=== PATIENT | male | born 1950 | race Caucasian/White ===

== ENCOUNTER 2020-09-07 09:00 | Inpatient (IN) ==
[2020-09-07] MEDS ORDERED: GLUCAGON 1 MG VIAL IM PRN (09:04)
[2020-09-07] MEDS ORDERED: DEXTROSE 50% 25 GM/50 ML VIAL IV PRN (09:04)
[2020-09-07] MEDS ORDERED: CLORAZEPATE 3.75 MG TABLET PO PRN (09:14)
[2020-09-07] MEDS ORDERED: SODIUM CHLORIDE 0.9% 1,000 ML IV SCH (09:30)
[2020-09-07] MEDS: CHLORHEXIDINE 4% SOLN 118 ML BOTTLE TOP SCH ×3 (09:39→20:30)
[2020-09-07] MEDS: CHLORHEXIDINE 0.12% ORAL RINSE 60 ML BOTTLE SWISH/SPIT SCH ×2 (09:39→20:23)
[2020-09-07 10:01] LABS: Basophils # 0.1 10*3/uL (0.0-0.2); Basophils % 0.6 % (0.0-0.8); Eosinophils # 0.3 10*3/uL (0.0-0.87); Eosinophils % 3.7 % (0.00-10.9); Hemoglobin 13.3 GM/DL (14.0-18.0); Immature Granulocytes % 0.5 %; Immature Granulocytes Absolute 0.04 #; Lymphocytes # 0.8 10*3/uL (1.4-4.0); Lymphocytes % 10.1 % (21.2-54.2); Mean Corpuscular HGB Conc 34.1 GM/DL (32-36); Mean Corpuscular Volume 91.5 FL (87-102); Mean Platelet Volume 10.8 FL (9.6-12.0); Monocytes % 10.5 % (1.7-12.7); Neutrophils % 74.6 % (38.7-73.9); Platelet Count 187 T/CUMM (130-400); Red Blood Count 4.26 MC/CUMM (3.8-5.5); Red Cell Distribution Width 14.4 % (9.3-17.3); White Blood Count 8.2 T/CUMM (4-12)
[2020-09-07 10:29] LABS: Albumin 3.3 G/DL (3.4-5.0); Bilirubin,Total 0.6 MG/DL (0.2-1.0); Calcium 8.6 MG/DL (8.5-10.1); Osmolality,Calculated 278.5 MOS/KG (273-304); Potassium 3.8 MMOL/L (3.5-5.1)
[2020-09-07 14:09] LABS: ABG Base Excess 3.9 MMOL/L (-2.5-2.5); ABG HCO3 27.7 MMOL/L (20-26); ABG Oxygen Saturation 90.1 % (95-100); ABG PCO2 37.5 MM HG (35-48); ABG PH 7.473 (7.35-7.45); ABG TCO2 23.9 MMOL/L (23-27)
[2020-09-07] MEDS: ASCORBIC ACID 500 MG TABLET PO SCH ×2 (14:39→20:23)
[2020-09-07] MEDS ORDERED: CHLORHEXIDINE 4% SOLN 118 ML BOTTLE TOP SCH (15:00)
[2020-09-07] MEDS: carvediloL 3.125 MG TABLET PO SCH (16:38)
[2020-09-07] MEDS: BUDESONIDE 0.5 MG/2 ML NEB RESP TX SCH (19:35)
[2020-09-07] MEDS ORDERED: ESCITALOPRAM 10 MG TABLET PO SCH (21:00)
[2020-09-07] MEDS ORDERED: CHLORHEXIDINE 0.12% ORAL RINSE 60 ML BOTTLE SWISH/SPIT SCH (21:00)
[2020-09-07] MEDS ORDERED: ROSUVASTATIN 20 MG TABLET PO SCH (21:00)
[2020-09-07] MEDS ORDERED: ALFUZOSIN 10 MG TABLET PO SCH (21:00)
[2020-09-08] MEDS ORDERED: PAPAVERINE 60 MG/2 ML VIAL ONE (04:22)
[2020-09-08] MEDS ORDERED: VANCOMYCIN 1,000 MG VIAL ONE (04:22)
[2020-09-08] MEDS ORDERED: VANCOMYCIN 500 MG VIAL ONE (04:22)
[2020-09-08] MEDS ORDERED: CEFUROXIME INJ 1,500 MG in SYRINGE 1 EACH IV ONE (05:00)
[2020-09-08] MEDS ORDERED: VECURONIUM 10 MG VIAL IV ONE (05:32)
[2020-09-08] MEDS ORDERED: AMINOCAPROIC ACID 5,000 MG/20 ML VIAL ONE (05:32)
[2020-09-08] MEDS ORDERED: LIDOCAINE 2% 5 ML VIAL ONE ×2 (05:32→12:27)
[2020-09-08] MEDS ORDERED: CALCIUM CHLORIDE 1,000 MG/10 ML VIAL IV ONE ×2 (05:33→12:22)
[2020-09-08] MEDS ORDERED: ETOMIDATE 40 MG/20 ML VIAL IV ONE (05:33)
[2020-09-08] MEDS ORDERED: HEPARIN/NACL 0.9% 2 UNITS/ML 500 ML IV ONE (05:55)
[2020-09-08] MEDS ORDERED: PHENYLEPHRINE DRIP 20 MG/250 ML PREMIX IV ONE (05:55)
[2020-09-08] MEDS ORDERED: SODIUM CHLORIDE 0.9% 250 ML IV ONE (05:55)
[2020-09-08] MEDS ORDERED: LACTATED RINGERS 1,000 ML IV ONE (05:55)
[2020-09-08] MEDS ORDERED: SODIUM CHLORIDE 0.9% 100 ML IV ONE ×2 (05:55→13:04)
[2020-09-08] MEDS ORDERED: SODIUM CHLORIDE 0.9% 1,000 ML IV ONE (05:55)
[2020-09-08] MEDS ORDERED: DIAZEPAM 5 MG TABLET PO ONE (06:00)
[2020-09-08] MEDS ORDERED: FAMOTIDINE 20 MG TABLET PO ONE (06:00)
[2020-09-08] MEDS ORDERED: MIDAZOLAM 10 MG/2 ML VIAL ONE ×4 (06:05→06:06)
[2020-09-08] MEDS ORDERED: SUFentanil 250 MCG/5 ML AMP ONE ×2 (06:06→08:01)
[2020-09-08] MEDS ORDERED: SEVOFLURANE 1 UNIT/15 MINUTE INH ONE ×2 (07:21→12:43)
[2020-09-08 07:46] LABS: ABG Base Excess 1.4 MMOL/L (-2.5-2.5); ABG HCO3 25.7 MMOL/L (20-26); ABG PCO2 38.9 MM HG (35-48); ABG PH 7.428 (7.35-7.45); ABG TCO2 22.8 MMOL/L (23-27); Glucose Heart Surgery 104 MG/DL (74-106); Hematocrit Heart Surgery 36.1 PERCENT (42-52); Hemoglobin Heart Surgery 11.7 G/DL (14.0-18.0); Ionized Calcium Arterial 1.15 MMOL/L (1.21-1.46); PCO2 Patient Temp Arterial 38.9 MMHG; PH Patient Temp Arterial 7.428; Patient Temperature 37 CELCIUS; Potassium Heart/CVR 3.3 MMOL/L (3.5-5.1); Sodium Heart/CVR 140 MMOL/L (135-145)
[2020-09-08] MEDS: BUDESONIDE 0.5 MG/2 ML NEB RESP TX SCH (08:08)
[2020-09-08] MEDS: carvediloL 3.125 MG TABLET PO SCH (08:09)
[2020-09-08] MEDS: CHLORHEXIDINE 0.12% ORAL RINSE 60 ML BOTTLE SWISH/SPIT SCH (08:09)
[2020-09-08] MEDS: ASCORBIC ACID 500 MG TABLET PO SCH (08:11)
[2020-09-08] MEDS ORDERED: NITROPRUSSIDE 50 MG/2 ML VIAL ONE (08:16)
[2020-09-08] MEDS ORDERED: PHENYLEPHRINE DRIP 40 MG/250 ML PREMIX IV ONE (08:16)
[2020-09-08] MEDS ORDERED: POTASSIUM CHLORIDE RIDER 100 ML IV ONE ×2 (08:16→12:43)
[2020-09-08] MEDS ORDERED: SODIUM BICARBONATE 50 MEQ/50 ML VIAL IV ONE ×2 (08:16→12:29)
[2020-09-08] MEDS ORDERED: EPINEPHrine 1 MG/10 ML SYRINGE ONE (08:17)
[2020-09-08] MEDS ORDERED: CALCIUM CHLORIDE 1,000 MG/10 ML SYRINGE IV ONE (08:17)
[2020-09-08 08:54] LABS: Bilirubin,Urine Negative (Negative); Blood, Urine Negative (Negative); Glucose,Urine (UA) Negative (Negative); Ketones,Urine Negative (Negative); Mucus,Urine Occasional /LPF (Occasional); Nitrite,Urine Negative (Negative); Protein,Urine Negative; RBC,Urine 6 /HPF (0-4); Urine Appearance CLEAR (Clear); Urine Color Yellow (Yellow); Urine Specific Gravity 1.019 (1.001-1.035); Urine Urobilinogen < 2.0 EU/DL (0.2-1.0); WBC,Urine 15 /HPF (0-6)
[2020-09-08] MEDS ORDERED: amLODIPine 10 MG TABLET PO SCH (09:00)
[2020-09-08 09:28] LABS: Hematocrit Heart Surgery 28.7 PERCENT (42-52); Hemoglobin Heart Surgery 9.3 G/DL (14.0-18.0); PCO2 Patient Temp Venous 33.1 MM HG; PH Patient Temp Venous 7.503; PO2 Patient Temp Venous 32.6 MM HG; Potassium Heart/CVR 3.9 MMOL/L (3.5-5.1); VBG Base Excess 3.2 MEQ/L (0-4); VBG HCO3 26.9 MEQ/L (24-28); VBG Oxygen Saturation 77.5 %; VBG PCO2 38.3 MMHG (41-51); VBG PH 7.458; VBG PO2 40.3 MMHG (17-40); VBG Total CO2 24.9 MMOL/L
[2020-09-08 10:02] LABS: Hemoglobin Heart Surgery 8.7 G/DL (14.0-18.0); PCO2 Patient Temp Venous 36.1 MM HG; PH Patient Temp Venous 7.453; PO2 Patient Temp Venous 51.7 MM HG; Potassium Heart/CVR 3.4 MMOL/L (3.5-5.1); VBG Base Excess 1.7 MEQ/L (0-4); VBG HCO3 25.9 MEQ/L (24-28); VBG Oxygen Saturation 93.7 %; VBG PCO2 43.8 MMHG (41-51); VBG PH 7.395; VBG PO2 67.1 MMHG (17-40); VBG Total CO2 24.8 MMOL/L
[2020-09-08 10:28] LABS: Hematocrit Heart Surgery 27.6 PERCENT (42-52); Hemoglobin Heart Surgery 8.9 G/DL (14.0-18.0); PCO2 Patient Temp Venous 29.8 MM HG; PH Patient Temp Venous 7.514; PO2 Patient Temp Venous 35.4 MM HG; Potassium Heart/CVR 3.8 MMOL/L (3.5-5.1); VBG Base Excess 1.8 MEQ/L (0-4); VBG HCO3 25.9 MEQ/L (24-28); VBG Oxygen Saturation 90.4 %; VBG PCO2 41.8 MMHG (41-51); VBG PH 7.411; VBG PO2 56.8 MMHG (17-40); VBG Total CO2 24.5 MMOL/L
[2020-09-08 11:06] LABS: Hematocrit Heart Surgery 28.2 PERCENT (42-52); Hemoglobin Heart Surgery 9.1 G/DL (14.0-18.0); PCO2 Patient Temp Venous 29.6 MM HG; PH Patient Temp Venous 7.512; PO2 Patient Temp Venous 38.4 MM HG; Potassium Heart/CVR 3.6 MMOL/L (3.5-5.1); VBG Base Excess 1.5 MEQ/L (0-4); VBG HCO3 25.6 MEQ/L (24-28); VBG Oxygen Saturation 91.5 %; VBG PCO2 41.5 MMHG (41-51); VBG PH 7.409; VBG PO2 61.2 MMHG (17-40); VBG Total CO2 24.2 MMOL/L
[2020-09-08 11:22] LABS: Hematocrit Heart Surgery 27.3 PERCENT (42-52); Hemoglobin Heart Surgery 8.8 G/DL (14.0-18.0); PCO2 Patient Temp Venous 40.3 MM HG; PH Patient Temp Venous 7.416; PO2 Patient Temp Venous 62.8 MM HG; Potassium Heart/CVR 3.8 MMOL/L (3.5-5.1); VBG Base Excess 1.3 MEQ/L (0-4); VBG HCO3 25.5 MEQ/L (24-28); VBG Oxygen Saturation 93.1 %; VBG PCO2 40.3 MMHG (41-51); VBG PH 7.416; VBG PO2 62.8 MMHG (17-40); VBG Total CO2 23.9 MMOL/L
[2020-09-08] MEDS ORDERED: diphenhydrAMINE 50 MG/1 ML VIAL ONE (11:41)
[2020-09-08] MEDS ORDERED: FAMOTIDINE 20 MG/2 ML VIAL IV ONE (11:42)
[2020-09-08 11:52] LABS: Hemoglobin Heart Surgery 8.7 G/DL (14.0-18.0); PCO2 Patient Temp Venous 35.3 MM HG; PH Patient Temp Venous 7.455; PO2 Patient Temp Venous 37.9 MM HG; Potassium Heart/CVR 4.2 MMOL/L (3.5-5.1); VBG Base Excess 1.2 MEQ/L (0-4); VBG HCO3 25.2 MEQ/L (24-28); VBG Oxygen Saturation 79.8 %; VBG PCO2 38.9 MMHG (41-51); VBG PH 7.426; VBG PO2 43.6 MMHG (17-40); VBG Total CO2 23.7 MMOL/L
[2020-09-08] MEDS ORDERED: ALBUMIN 5% 12.5 GM/250 ML VIAL IV ONE ×2 (12:05)
[2020-09-08] MEDS ORDERED: ALBUMIN 25% 25 GM/100 ML VIAL IV ONE (12:27)
[2020-09-08] MEDS ORDERED: MAGNESIUM SULFATE 5 GM/10 ML VIAL IV ONE (12:27)
[2020-09-08] MEDS ORDERED: PROTAMINE SULFATE 250 MG/25 ML VIAL IV ONE (12:28)
[2020-09-08] MEDS ORDERED: DEXTROSE 5% KCL 20 MEQ 40 MEQ/2,000 ML BAG IV ONE (12:28)
[2020-09-08] MEDS ORDERED: HEPARIN 10,000 UNIT/10 ML VIAL ONE (12:28)
[2020-09-08] MEDS ORDERED: methylPREDNISolone SOD SUC 1,000 MG/8 ML VIAL ONE (12:28)
[2020-09-08] MEDS ORDERED: MANNITOL 100 GM/500 ML BAG IV ONE (12:28)
[2020-09-08] MEDS ORDERED: FUROSEMIDE 20 MG/2 ML VIAL ONE (12:29)
[2020-09-08] MEDS ORDERED: PROTAMINE SULFATE 50 MG/5 ML VIAL IV ONE ×2 (12:29→14:15)
[2020-09-08] MEDS ORDERED: POTASSIUM CHLORIDE 20 MEQ/10 ML VIAL ONE (12:29)
[2020-09-08 12:37] LABS: ABG Base Excess -0.7 MMOL/L (-2.5-2.5); ABG HCO3 23.8 MMOL/L (20-26); ABG Oxygen Saturation 98.9 % (95-100); ABG PCO2 38.2 MM HG (35-48); ABG PH 7.412 (7.35-7.45); Glucose Heart Surgery 232 MG/DL (74-106); Hemoglobin Heart Surgery 8.5 G/DL (14.0-18.0); Ionized Calcium Arterial 1.13 MMOL/L (1.21-1.46); PCO2 Patient Temp Arterial 38.2 MMHG; PH Patient Temp Arterial 7.412; Patient Temperature 37 CELCIUS; Potassium Heart/CVR 3.1 MMOL/L (3.5-5.1); Sodium Heart/CVR 130 MMOL/L (135-145)
[2020-09-08] MEDS ORDERED: THROMBIN TOPICAL (RECOMBINANT) 5,000 UNIT VIAL TOP ONE (12:38)
[2020-09-08] MEDS ORDERED: POTASSIUM CHLORIDE RIDER 10 MEQ in PREMIX 1 EACH IV PRN (13:38)
[2020-09-08] MEDS ORDERED: LACTATED RINGERS 250 ML IV PRN (13:38)
[2020-09-08] MEDS ORDERED: MAGNESIUM SULF RIDER 4 GM in PREMIX 1 EACH IV PRN (13:38)
[2020-09-08] MEDS ORDERED: PHENYLEPHRINE DRIP 40 MG/250 ML PREMIX IV PRN (13:38)
[2020-09-08] MEDS ORDERED: MORPHINE 4 MG/1 ML VIAL IV PRN (13:38)
[2020-09-08] MEDS ORDERED: CHLORHEXIDINE 4% SOLN 118 ML BOTTLE TOP PRN (13:38)
[2020-09-08] MEDS ORDERED: DEXTROSE 50% 25 GM/50 ML VIAL IV PRN ×2 (13:38)
[2020-09-08] MEDS ORDERED: MIDAZOLAM 2 MG/2 ML VIAL IV PRN (13:38)
[2020-09-08] MEDS ORDERED: MIDAZOLAM 10 MG/2 ML VIAL IV PRN (13:38)
[2020-09-08] MEDS ORDERED: INSULIN REGULAR DRIP 100 ML IV SCH (13:38)
[2020-09-08] MEDS ORDERED: CALCIUM CHLORIDE 1,000 MG/10 ML SYRINGE IV PRN (13:38)
[2020-09-08] MEDS ORDERED: ACETAMINOPHEN 650 MG SUPP RECTAL PRN (13:38)
[2020-09-08] MEDS ORDERED: ONDANSETRON 4 MG/2 ML VIAL IV PRN (13:38)
[2020-09-08] MEDS ORDERED: MORPHINE 10 MG/1 ML VIAL IV PRN (13:38)
[2020-09-08] MEDS ORDERED: INSULIN REGULAR 100 UNIT/ML IV PRN (13:38)
[2020-09-08] MEDS ORDERED: VECURONIUM 10 MG VIAL IV PRN ×2 (13:38)
[2020-09-08] MEDS ORDERED: MAGNESIUM SULF RIDER 2 GM in PREMIX 1 EACH IV PRN (13:38)
[2020-09-08] MEDS ORDERED: NITROPRUSSIDE 100 MG in DEXTROSE 5% 250 ML IV PRN (13:38)
[2020-09-08] MEDS ORDERED: INSULIN REGULAR 100 UNIT/ML IV ONE (13:38)
[2020-09-08] MEDS ORDERED: SODIUM CHLORIDE 0.45% 1,000 ML IV SCH ×2 (13:38)
[2020-09-08] MEDS: POTASSIUM CHLORIDE RIDER 20 MEQ in PREMIX 1 EACH IV PRN ×4 (13:55→17:40)
[2020-09-08 14:15] LABS: ABG Base Excess -0.7 MMOL/L (-2.5-2.5); ABG HCO3 23.9 MMOL/L (20-26); ABG Oxygen Saturation 99.6 % (95-100); ABG PCO2 44.6 MM HG (35-48); ABG PH 7.354 (7.35-7.45); ABG TCO2 23.3 MMOL/L (23-27); Glucose Heart Surgery 188 MG/DL (74-106); Hematocrit Heart Surgery 24.8 PERCENT (42-52)
[2020-09-08 14:20] LABS: Basophils % 0.2 % (0.0-0.8); Eosinophils # 0.1 10*3/uL (0.0-0.87); Eosinophils % 0.6 % (0.00-10.9); Hematocrit 22.8 VOL% (42.0-52.0); Hemoglobin 7.7 GM/DL (14.0-18.0); Lymphocytes # 0.4 10*3/uL (1.4-4.0); Lymphocytes % 4.3 % (21.2-54.2); Mean Corpuscular HGB Conc 33.8 GM/DL (32-36); Mean Corpuscular Volume 93.1 FL (87-102); Monocytes % 7.6 % (1.7-12.7); Neutrophils % 86.3 % (38.7-73.9); Platelet Count 185 T/CUMM (130-400); Red Blood Count 2.45 MC/CUMM (3.8-5.5); Red Cell Distribution Width 14.2 % (9.3-17.3); White Blood Count 10.2 T/CUMM (4-12)
[2020-09-08 14:32] LABS: CKMB % 13.9 %
[2020-09-08 14:34] LABS: Troponin I 17.8 NG/ML (0.00-0.045)
[2020-09-08 14:36] LABS: INR 1.2; PT Patient Result 12.6 SECS (9.8-11.9); Partial Thromboplastin Time 28.8 SECS (23.9-33.8)
[2020-09-08 14:39] LABS: Albumin 2.6 G/DL (3.4-5.0); Calcium 8.7 MG/DL (8.5-10.1); Osmolality,Calculated 283.4 MOS/KG (273-304); Total Protein 4.9 G/DL (6.4-8.2)
[2020-09-08] MEDS: ALBUMIN 5% 12.5 GM in PREMIX 1 EACH IV PRN ×2 (14:52→16:58)
[2020-09-08 15:08] LABS: Band Neutrophils 2 % (0-10); Lymphocytes 4 % (20-55); Segmented Neutrophils 93 % (50-85); Total Cells Counted 100
[2020-09-08 15:09] LABS: Hypochromasia 2+; Macrocytosis Slight; Platelet Estimate Normal
[2020-09-08 15:37] LABS: ABG Base Excess -1.7 MMOL/L (-2.5-2.5); ABG Oxygen Saturation 99.5 % (95-100); ABG PCO2 45.3 MM HG (35-48); ABG PH 7.337 (7.35-7.45); ABG TCO2 22.1 MMOL/L (23-27); Glucose Heart Surgery 173 MG/DL (74-106); Hematocrit Heart Surgery 32.3 PERCENT (42-52); Hemoglobin Heart Surgery 10.4 G/DL (14.0-18.0); Potassium Heart/CVR 4.1 MMOL/L (3.5-5.1)
[2020-09-08 17:01] LABS: ABG HCO3 23.6 MMOL/L (20-26); ABG PCO2 45.6 MM HG (35-48); ABG PH 7.345 (7.35-7.45); ABG TCO2 22.8 MMOL/L (23-27); Glucose Heart Surgery 139 MG/DL (74-106); Potassium Heart/CVR 3.3 MMOL/L (3.5-5.1)
[2020-09-08 17:49] LABS: ABG Base Excess -0.4 MMOL/L (-2.5-2.5); ABG HCO3 24.1 MMOL/L (20-26); ABG Oxygen Saturation 99.1 % (95-100); ABG PCO2 45.1 MM HG (35-48); ABG PH 7.357 (7.35-7.45); ABG TCO2 23.2 MMOL/L (23-27); Glucose Heart Surgery 119 MG/DL (74-106); Hematocrit Heart Surgery 30.1 PERCENT (42-52); Hemoglobin Heart Surgery 9.7 G/DL (14.0-18.0); Potassium Heart/CVR 4.1 MMOL/L (3.5-5.1)
[2020-09-08] MEDS: KETOROLAC 30 MG/1 ML VIAL IV SCH (19:27)
[2020-09-08 20:24] LABS: ABG Base Excess -1.9 MMOL/L (-2.5-2.5); ABG HCO3 22.9 MMOL/L (20-26); ABG Oxygen Saturation 98.9 % (95-100); ABG PCO2 47.6 MM HG (35-48); ABG TCO2 22.4 MMOL/L (23-27); Glucose Heart Surgery 118 MG/DL (74-106); Hematocrit Heart Surgery 32.3 PERCENT (42-52); Hemoglobin Heart Surgery 10.5 G/DL (14.0-18.0); Potassium Heart/CVR 3.9 MMOL/L (3.5-5.1)
[2020-09-08] MEDS: CEFUROXIME INJ 1,500 MG in SYRINGE 1 EACH IV SCH (20:40)
[2020-09-08 20:47] LABS: CKMB % 11.9 %
[2020-09-08 20:50] LABS: Troponin I 14.6 NG/ML (0.00-0.045)
[2020-09-08] MEDS ORDERED: CHLORHEXIDINE 0.12% ORAL RINSE 60 ML BOTTLE SWISH/SPIT SCH (21:00)
[2020-09-08 21:44] LABS: ABG Base Excess -1.4 MMOL/L (-2.5-2.5); ABG HCO3 23.2 MMOL/L (20-26); ABG Oxygen Saturation 98.2 % (95-100); ABG PCO2 44.7 MM HG (35-48); ABG PH 7.345 (7.35-7.45); ABG TCO2 22.3 MMOL/L (23-27); Glucose Heart Surgery 155 MG/DL (74-106); Hematocrit Heart Surgery 31.2 PERCENT (42-52); Hemoglobin Heart Surgery 10.1 G/DL (14.0-18.0)
[2020-09-08 23:00] LABS: ABG Base Excess -1.2 MMOL/L (-2.5-2.5); ABG HCO3 23.5 MMOL/L (20-26); ABG Oxygen Saturation 98.7 % (95-100); ABG PCO2 42.6 MM HG (35-48); ABG PH 7.363 (7.35-7.45); ABG TCO2 22.1 MMOL/L (23-27); Glucose Heart Surgery 156 MG/DL (74-106); Hematocrit Heart Surgery 30.8 PERCENT (42-52); Hemoglobin Heart Surgery 9.9 G/DL (14.0-18.0)
[2020-09-09] MEDS ORDERED: FUROSEMIDE 40 MG/4 ML VIAL IV ONE (00:08)
[2020-09-09] MEDS: KETOROLAC 30 MG/1 ML VIAL IV SCH ×4 (00:22→21:02)
[2020-09-09 00:26] LABS: ABG Base Excess -1.6 MMOL/L (-2.5-2.5); ABG HCO3 23.1 MMOL/L (20-26); ABG PCO2 39.9 MM HG (35-48); ABG PH 7.377 (7.35-7.45); ABG PO2 96.1 MM HG (80-95); ABG TCO2 20.8 MMOL/L (23-27); Glucose Heart Surgery 153 MG/DL (74-106); Hematocrit Heart Surgery 37.4 PERCENT (42-52); Hemoglobin Heart Surgery 12.2 G/DL (14.0-18.0); Potassium Heart/CVR 3.9 MMOL/L (3.5-5.1)
[2020-09-09 04:29] LABS: Basophils % 0.1 % (0.0-0.8); Hematocrit 28.9 VOL% (42.0-52.0); Immature Granulocytes % 0.5 %; Immature Granulocytes Absolute 0.05 #; Lymphocytes # 0.4 10*3/uL (1.4-4.0); Lymphocytes % 4.4 % (21.2-54.2); Mean Corpuscular HGB Conc 34.6 GM/DL (32-36); Mean Corpuscular Volume 89.8 FL (87-102); Mean Platelet Volume 10.8 FL (9.6-12.0); Monocytes % 6.4 % (1.7-12.7); Neutrophils % 88.6 % (38.7-73.9); Platelet Count 158 T/CUMM (130-400); Red Blood Count 3.22 MC/CUMM (3.8-5.5); Red Cell Distribution Width 14.6 % (9.3-17.3); White Blood Count 10.1 T/CUMM (4-12)
[2020-09-09 04:31] LABS: ABG Base Excess -0.2 MMOL/L (-2.5-2.5); ABG HCO3 24.2 MMOL/L (20-26); ABG Oxygen Saturation 97.4 % (95-100); ABG PCO2 37.7 MM HG (35-48); ABG PH 7.414 (7.35-7.45); ABG PO2 86.1 MM HG (80-95); ABG TCO2 21.8 MMOL/L (23-27); Glucose Heart Surgery 102 MG/DL (74-106); Hematocrit Heart Surgery 32.3 PERCENT (42-52); Hemoglobin Heart Surgery 10.5 G/DL (14.0-18.0); Potassium Heart/CVR 3.5 MMOL/L (3.5-5.1)
[2020-09-09] MEDS: POTASSIUM CHLORIDE RIDER 20 MEQ in PREMIX 1 EACH IV PRN (04:36)
[2020-09-09 04:51] LABS: CKMB % 12.1 %
[2020-09-09 05:06] LABS: Albumin 3.3 G/DL (3.4-5.0); Bilirubin,Direct 0.26 MG/DL (0.0-0.20); Bilirubin,Total 0.9 MG/DL (0.2-1.0); Calcium 8.5 MG/DL (8.5-10.1); Osmolality,Calculated 284.3 MOS/KG (273-304); Potassium 3.5 MMOL/L (3.5-5.1); Total Protein 5.7 G/DL (6.4-8.2)
[2020-09-09 05:09] LABS: Band Neutrophils 2 % (0-10); Lymphocytes 6 % (20-55); Segmented Neutrophils 90 % (50-85); Total Cells Counted 100
[2020-09-09 05:10] LABS: Hypochromasia 1+; Microcytosis 1+; Platelet Estimate Adequate
[2020-09-09] MEDS ORDERED: ZALEPLON 5 MG CAPSULE PO PRN (08:45)
[2020-09-09] MEDS ORDERED: ONDANSETRON 4 MG/2 ML VIAL IV PRN (08:45)
[2020-09-09] MEDS ORDERED: MAGNESIUM SULF RIDER 2 GM in PREMIX 1 EACH IV PRN (08:45)
[2020-09-09] MEDS ORDERED: MAGNESIUM HYDROXIDE SUSP 30 ML UDCUP PO PRN (08:45)
[2020-09-09] MEDS ORDERED: ALUMINUM/MAGNES/SIMETH MAX STR 30 ML UDCUP PO PRN (08:45)
[2020-09-09] MEDS ORDERED: MAGNESIUM SULF RIDER 4 GM in PREMIX 1 EACH IV PRN (08:45)
[2020-09-09] MEDS ORDERED: oxyCODONE/ACETAMINOPHEN 5-325 MG TABLET PO PRN (08:45)
[2020-09-09] MEDS ORDERED: DEXTROSE 50% 25 GM/50 ML VIAL IV PRN (08:45)
[2020-09-09] MEDS ORDERED: GLUCAGON 1 MG VIAL IM PRN (08:45)
[2020-09-09] MEDS ORDERED: ACETAMINOPHEN 325 MG TABLET PO PRN (08:45)
[2020-09-09] MEDS: ASPIRIN EC 81 MG TABLET PO SCH (08:51)
[2020-09-09] MEDS: CEFUROXIME INJ 1,500 MG in SYRINGE 1 EACH IV SCH ×2 (08:52→20:57)
[2020-09-09] MEDS: DOCUSATE SODIUM 100 MG CAPSULE PO SCH (09:58)
[2020-09-09] MEDS: FERROUS SULFATE 325 MG TABLET PO SCH (09:58)
[2020-09-09] MEDS: SODIUM CHLOR 0.45% KCL 20 MEQ 20 MEQ/1,000 ML BAG IV SCH (09:58)
[2020-09-09] MEDS: PANTOPRAZOLE 40 MG TABLET PO SCH (09:58)
[2020-09-09] MEDS: CHLORHEXIDINE 0.12% ORAL RINSE 60 ML BOTTLE SWISH/SPIT SCH ×2 (09:59→21:01)
[2020-09-09 14:34] LABS: CKMB % 7.6 %
[2020-09-09 14:43] LABS: Troponin I 6.82 NG/ML (0.00-0.045)
[2020-09-09] MEDS: WARFARIN 5 MG TABLET PO SCH (17:30)
[2020-09-09] MEDS: BUDESONIDE 0.5 MG/2 ML NEB RESP TX SCH (19:18)
[2020-09-09] MEDS: ROSUVASTATIN 20 MG TABLET PO SCH (21:00)
[2020-09-09] MEDS: ESCITALOPRAM 10 MG TABLET PO SCH (21:00)
[2020-09-09] MEDS: ALFUZOSIN 10 MG TABLET PO SCH (21:01)
[2020-09-10] MEDS: KETOROLAC 30 MG/1 ML VIAL IV SCH ×4 (00:57→20:30)
[2020-09-10 05:09] LABS: Basophils % 0.1 % (0.0-0.8); Hematocrit 27.5 VOL% (42.0-52.0); Hemoglobin 9.1 GM/DL (14.0-18.0); Immature Granulocytes % 0.7 %; Immature Granulocytes Absolute 0.08 #; Lymphocytes # 0.5 10*3/uL (1.4-4.0); Lymphocytes % 4.4 % (21.2-54.2); Mean Corpuscular HGB Conc 33.1 GM/DL (32-36); Mean Corpuscular Volume 92.6 FL (87-102); Mean Platelet Volume 12.1 FL (9.6-12.0); Monocytes % 9.1 % (1.7-12.7); Neutrophils % 85.7 % (38.7-73.9); Platelet Count 138 T/CUMM (130-400); Red Blood Count 2.97 MC/CUMM (3.8-5.5); Red Cell Distribution Width 15.1 % (9.3-17.3); White Blood Count 11.8 T/CUMM (4-12)
[2020-09-10 05:21] LABS: INR 1.1; PT Patient Result 11.9 SECS (9.8-11.9)
[2020-09-10 05:26] LABS: Calcium 8.5 MG/DL (8.5-10.1); Potassium 4.2 MMOL/L (3.5-5.1)
[2020-09-10 05:32] LABS: Albumin 3.1 G/DL (3.4-5.0); Bilirubin,Direct 0.16 MG/DL (0.0-0.20); Bilirubin,Indirect 0.5 MG/DL (0.0-1.0); Bilirubin,Total 0.7 MG/DL (0.2-1.0); CKMB % 4.6 %; Calcium 8.5 MG/DL (8.5-10.1); Osmolality,Calculated 284.7 MOS/KG (273-304); Potassium 4.3 MMOL/L (3.5-5.1); Total Protein 6.1 G/DL (6.4-8.2)
[2020-09-10 05:34] LABS: Troponin I 3.71 NG/ML (0.00-0.045)
[2020-09-10] MEDS ORDERED: FUROSEMIDE 40 MG/4 ML VIAL IV ONE (06:00)
[2020-09-10 06:48] LABS: Atypical Lymphocytes Few; Lymphocytes 11 % (20-55); Platelet Estimate Decreased; Segmented Neutrophils 89 % (50-85); Total Cells Counted 100
[2020-09-10] MEDS: BUDESONIDE 0.5 MG/2 ML NEB RESP TX SCH ×2 (07:10→19:10)
[2020-09-10] MEDS ORDERED: AMIODARONE INJ 150 MG in DEXTROSE 5% 100 ML IV ONE (07:59)
[2020-09-10] MEDS ORDERED: AMIODARONE INJ 450 MG in DEXTROSE 5% 241 ML IV SCH (08:00)
[2020-09-10] MEDS: PANTOPRAZOLE 40 MG TABLET PO SCH (08:51)
[2020-09-10] MEDS: DOCUSATE SODIUM 100 MG CAPSULE PO SCH (08:51)
[2020-09-10] MEDS: FERROUS SULFATE 325 MG TABLET PO SCH (08:51)
[2020-09-10] MEDS: ASPIRIN EC 81 MG TABLET PO SCH (08:51)
[2020-09-10] MEDS: CHLORHEXIDINE 0.12% ORAL RINSE 60 ML BOTTLE SWISH/SPIT SCH ×2 (08:56→20:29)
[2020-09-10] MEDS: SODIUM CHLOR 0.45% KCL 20 MEQ 20 MEQ/1,000 ML BAG IV SCH (10:06)
[2020-09-10] MEDS: AMIODARONE INJ 450 MG in DEXTROSE 5% 241 ML IV SCH ×2 (15:29→18:35)
[2020-09-10] MEDS: CLORAZEPATE 3.75 MG TABLET PO PRN (16:26)
[2020-09-10] MEDS: WARFARIN 5 MG TABLET PO SCH (17:43)
[2020-09-10] MEDS: ESCITALOPRAM 10 MG TABLET PO SCH (20:30)
[2020-09-10] MEDS: ROSUVASTATIN 20 MG TABLET PO SCH (20:30)
[2020-09-10] MEDS: ALFUZOSIN 10 MG TABLET PO SCH (20:30)
[2020-09-11] MEDS: KETOROLAC 30 MG/1 ML VIAL IV SCH ×4 (01:13→18:11)
[2020-09-11 05:40] LABS: Basophils % 0.1 % (0.0-0.8); Eosinophils % 0.3 % (0.00-10.9); Hematocrit 27.7 VOL% (42.0-52.0); Hemoglobin 8.9 GM/DL (14.0-18.0); Immature Granulocytes % 1.1 %; Immature Granulocytes Absolute 0.12 #; Lymphocytes # 0.6 10*3/uL (1.4-4.0); Lymphocytes % 5.5 % (21.2-54.2); Mean Corpuscular HGB Conc 32.1 GM/DL (32-36); Mean Corpuscular Volume 95.8 FL (87-102); Mean Platelet Volume 12.3 FL (9.6-12.0); Monocytes % 9.6 % (1.7-12.7); Neutrophils % 83.4 % (38.7-73.9); Platelet Count 141 T/CUMM (130-400); Red Blood Count 2.89 MC/CUMM (3.8-5.5); Red Cell Distribution Width 14.8 % (9.3-17.3); White Blood Count 10.8 T/CUMM (4-12)
[2020-09-11 05:49] LABS: INR 1.2
[2020-09-11 06:16] LABS: Calcium 8.4 MG/DL (8.5-10.1); Potassium 3.9 MMOL/L (3.5-5.1)
[2020-09-11] MEDS: AMIODARONE INJ 450 MG in DEXTROSE 5% 241 ML IV SCH ×2 (06:20→09:50)
[2020-09-11 06:21] LABS: Albumin 2.9 G/DL (3.4-5.0); Bilirubin,Direct 0.18 MG/DL (0.0-0.20); Bilirubin,Indirect 0.7 MG/DL (0.0-1.0); Bilirubin,Total 0.9 MG/DL (0.2-1.0); CKMB % 2.7 %; Calcium 8.1 MG/DL (8.5-10.1); Osmolality,Calculated 283.7 MOS/KG (273-304); Potassium 3.9 MMOL/L (3.5-5.1); Total Protein 5.9 G/DL (6.4-8.2)
[2020-09-11 06:26] LABS: Troponin I 1.9 NG/ML (0.00-0.045)
[2020-09-11] MEDS: BUDESONIDE 0.5 MG/2 ML NEB RESP TX SCH ×2 (07:10→19:04)
[2020-09-11] MEDS ORDERED: POLYETHYLENE GLYCOL POWDER 17 GM PACK PO ONE (08:16)
[2020-09-11] MEDS: PANTOPRAZOLE 40 MG TABLET PO SCH (08:54)
[2020-09-11] MEDS: CHLORHEXIDINE 0.12% ORAL RINSE 60 ML BOTTLE SWISH/SPIT SCH ×2 (08:54→21:51)
[2020-09-11] MEDS: DOCUSATE SODIUM 100 MG CAPSULE PO SCH (08:55)
[2020-09-11] MEDS: ASPIRIN EC 81 MG TABLET PO SCH (08:55)
[2020-09-11] MEDS: FERROUS SULFATE 325 MG TABLET PO SCH (08:55)
[2020-09-11] MEDS: AMIODARONE 200 MG TABLET PO SCH ×2 (09:49→21:51)
[2020-09-11] MEDS ORDERED: LACTULOSE 20 GM/30 ML UDCUP PO PRN (10:04)
[2020-09-11] MEDS: POTASSIUM CHLORIDE 20 MEQ TABLET PO PRN ×2 (14:49→18:11)
[2020-09-11] MEDS: WARFARIN 5 MG TABLET PO SCH (18:11)
[2020-09-11] MEDS ORDERED: AMIODARONE 150 MG/3 ML VIAL INTRAOSS ONE (19:44)
[2020-09-11] MEDS ORDERED: AMIODARONE INJ 100 MG in DEXTROSE 5% 100 ML IV ONE (20:04)
[2020-09-11] MEDS: ESCITALOPRAM 10 MG TABLET PO SCH (21:51)
[2020-09-11] MEDS: ALFUZOSIN 10 MG TABLET PO SCH (21:51)
[2020-09-11] MEDS: ROSUVASTATIN 20 MG TABLET PO SCH (21:51)
[2020-09-12] MEDS: KETOROLAC 30 MG/1 ML VIAL IV SCH ×4 (03:13→20:35)
[2020-09-12] MEDS: CLORAZEPATE 3.75 MG TABLET PO PRN (03:13)
[2020-09-12 06:03] LABS: Basophils % 0.1 % (0.0-0.8); Eosinophils # 0.4 10*3/uL (0.0-0.87); Eosinophils % 3.8 % (0.00-10.9); Hemoglobin 9.2 GM/DL (14.0-18.0); Immature Granulocytes % 0.5 %; Immature Granulocytes Absolute 0.05 #; Lymphocytes # 0.7 10*3/uL (1.4-4.0); Lymphocytes % 7.8 % (21.2-54.2); Mean Corpuscular HGB Conc 31.7 GM/DL (32-36); Mean Corpuscular Volume 97.3 FL (87-102); Mean Platelet Volume 12.7 FL (9.6-12.0); Monocytes % 9.4 % (1.7-12.7); Neutrophils % 78.4 % (38.7-73.9); Platelet Count 157 T/CUMM (130-400); Red Blood Count 2.98 MC/CUMM (3.8-5.5); Red Cell Distribution Width 14.6 % (9.3-17.3); White Blood Count 9.4 T/CUMM (4-12)
[2020-09-12 06:06] LABS: INR 1.3; PT Patient Result 13.5 SECS (9.8-11.9)
[2020-09-12 06:15] LABS: Calcium 8.2 MG/DL (8.5-10.1); Osmolality,Calculated 283.7 MOS/KG (273-304); Potassium 4.4 MMOL/L (3.5-5.1)
[2020-09-12] MEDS: BUDESONIDE 0.5 MG/2 ML NEB RESP TX SCH ×2 (07:14→19:21)
[2020-09-12] MEDS: ENOXAPARIN 60 MG/0.6 ML SYRINGE SUBCUT SCH (07:17)
[2020-09-12] MEDS: POLYETHYLENE GLYCOL POWDER 17 GM PACK PO SCH (09:13)
[2020-09-12] MEDS: CHLORHEXIDINE 0.12% ORAL RINSE 60 ML BOTTLE SWISH/SPIT SCH ×2 (09:14→20:40)
[2020-09-12] MEDS: FERROUS SULFATE 325 MG TABLET PO SCH (09:16)
[2020-09-12] MEDS: AMIODARONE 200 MG TABLET PO SCH ×2 (09:16→20:35)
[2020-09-12] MEDS: ASPIRIN EC 81 MG TABLET PO SCH (09:16)
[2020-09-12] MEDS: DOCUSATE SODIUM 100 MG CAPSULE PO SCH (09:16)
[2020-09-12] MEDS: PANTOPRAZOLE 40 MG TABLET PO SCH (09:17)
[2020-09-12] MEDS: METOPROLOL SUCCINATE XL 25 MG TABLET PO SCH (13:35)
[2020-09-12] MEDS: WARFARIN 5 MG TABLET PO SCH (17:27)
[2020-09-12] MEDS: ALBUTEROL/IPRATROPIUM 3 ML NEB RESP TX SCH (19:21)
[2020-09-12] MEDS: ESCITALOPRAM 10 MG TABLET PO SCH (20:35)
[2020-09-12] MEDS: ROSUVASTATIN 20 MG TABLET PO SCH (20:35)
[2020-09-12] MEDS: ALFUZOSIN 10 MG TABLET PO SCH (20:35)
[2020-09-13] MEDS: ALBUTEROL/IPRATROPIUM 3 ML NEB RESP TX SCH ×5 (00:38→18:49)
[2020-09-13] MEDS: KETOROLAC 30 MG/1 ML VIAL IV SCH ×3 (00:39→12:32)
[2020-09-13 05:46] LABS: Basophils % 0.1 % (0.0-0.8); Eosinophils # 0.5 10*3/uL (0.0-0.87); Eosinophils % 6.3 % (0.00-10.9); Hematocrit 26.9 VOL% (42.0-52.0); Hemoglobin 8.6 GM/DL (14.0-18.0); Immature Granulocytes Absolute 0.08 #; Lymphocytes # 0.8 10*3/uL (1.4-4.0); Lymphocytes % 9.2 % (21.2-54.2); Mean Corpuscular Volume 95.7 FL (87-102); Mean Platelet Volume 12.1 FL (9.6-12.0); Monocytes % 10.1 % (1.7-12.7); Neutrophils % 73.3 % (38.7-73.9); Platelet Count 176 T/CUMM (130-400); Red Blood Count 2.81 MC/CUMM (3.8-5.5); Red Cell Distribution Width 14.4 % (9.3-17.3); White Blood Count 8.2 T/CUMM (4-12)
[2020-09-13] MEDS: ENOXAPARIN 60 MG/0.6 ML SYRINGE SUBCUT SCH (05:49)
[2020-09-13 06:01] LABS: INR 1.8; PT Patient Result 19.2 SECS (9.8-11.9)
[2020-09-13 06:19] LABS: Alanine Aminotransferase 23 U/L (16-61); Albumin 2.8 G/DL (3.4-5.0); Alkaline Phosphatase 55 U/L (45-117); Aspartate Amino Transferase 10 U/L (0-37); Bilirubin,Indirect 0.6 MG/DL (0.0-1.0); Blood Urea Nitrogen 30 MG/DL (7-18); Calcium 8.3 MG/DL (8.5-10.1); Carbon Dioxide 29 MMOL/L (21-32); Estimated Glom Filtration Rate 102 ML/MIN; Glucose 95 MG/DL (74-106); Osmolality,Calculated 278.8 MOS/KG (273-304); Potassium 4.6 MMOL/L (3.5-5.1); Sodium 137 MMOL/L (136-145); Total Protein 5.6 G/DL (6.4-8.2)
[2020-09-13] MEDS: BUDESONIDE 0.5 MG/2 ML NEB RESP TX SCH ×2 (07:20→18:49)
[2020-09-13] MEDS ORDERED: FUROSEMIDE 40 MG/4 ML VIAL IV ONE ×2 (08:07→15:00)
[2020-09-13] MEDS: FERROUS SULFATE 325 MG TABLET PO SCH (08:53)
[2020-09-13] MEDS: PANTOPRAZOLE 40 MG TABLET PO SCH (08:53)
[2020-09-13] MEDS: DOCUSATE SODIUM 100 MG CAPSULE PO SCH (08:53)
[2020-09-13] MEDS: AMIODARONE 200 MG TABLET PO SCH ×2 (08:53→20:47)
[2020-09-13] MEDS: ASPIRIN EC 81 MG TABLET PO SCH (08:53)
[2020-09-13] MEDS: METOPROLOL SUCCINATE XL 25 MG TABLET PO SCH (08:53)
[2020-09-13] MEDS: CHLORHEXIDINE 0.12% ORAL RINSE 60 ML BOTTLE SWISH/SPIT SCH ×2 (08:54→20:48)
[2020-09-13] MEDS: POLYETHYLENE GLYCOL POWDER 17 GM PACK PO SCH (09:12)
[2020-09-13] MEDS: WARFARIN 5 MG TABLET PO SCH (18:20)
[2020-09-13] MEDS: ROSUVASTATIN 20 MG TABLET PO SCH (20:47)
[2020-09-13] MEDS: ESCITALOPRAM 10 MG TABLET PO SCH (20:48)
[2020-09-13] MEDS: ALFUZOSIN 10 MG TABLET PO SCH (20:48)
[2020-09-14] MEDS: ALBUTEROL/IPRATROPIUM 3 ML NEB RESP TX SCH ×4 (01:27→19:20)
[2020-09-14 05:44] LABS: Basophils % 0.1 % (0.0-0.8); Eosinophils # 0.6 10*3/uL (0.0-0.87); Eosinophils % 6.3 % (0.00-10.9); Hematocrit 28.2 VOL% (42.0-52.0); Hemoglobin 9.1 GM/DL (14.0-18.0); Immature Granulocytes % 0.8 %; Immature Granulocytes Absolute 0.07 #; Lymphocytes % 11.2 % (21.2-54.2); Mean Corpuscular HGB Conc 32.3 GM/DL (32-36); Mean Corpuscular Volume 96.2 FL (87-102); Mean Platelet Volume 11.6 FL (9.6-12.0); Monocytes % 10.6 % (1.7-12.7); Platelet Count 208 T/CUMM (130-400); Red Blood Count 2.93 MC/CUMM (3.8-5.5); Red Cell Distribution Width 14.4 % (9.3-17.3)
[2020-09-14 05:49] LABS: INR 2.3; PT Patient Result 23.3 SECS (9.8-11.9)
[2020-09-14] MEDS: ENOXAPARIN 60 MG/0.6 ML SYRINGE SUBCUT SCH (06:00)
[2020-09-14 06:08] LABS: Alanine Aminotransferase 24 U/L (16-61); Albumin 2.7 G/DL (3.4-5.0); Alkaline Phosphatase 60 U/L (45-117); Aspartate Amino Transferase 15 U/L (0-37); Blood Urea Nitrogen 25 MG/DL (7-18); Calcium 8.3 MG/DL (8.5-10.1); Carbon Dioxide 30 MMOL/L (21-32); Estimated Glom Filtration Rate 102 ML/MIN; Glucose 96 MG/DL (74-106); Osmolality,Calculated 276.8 MOS/KG (273-304); Potassium 3.7 MMOL/L (3.5-5.1); Sodium 137 MMOL/L (136-145); Total Protein 5.6 G/DL (6.4-8.2)
[2020-09-14 06:09] LABS: Troponin I 0.684 NG/ML (0.00-0.045)
[2020-09-14] MEDS: CHLORHEXIDINE 0.12% ORAL RINSE 60 ML BOTTLE SWISH/SPIT SCH ×2 (08:25→21:55)
[2020-09-14] MEDS: ASPIRIN EC 81 MG TABLET PO SCH (08:25)
[2020-09-14] MEDS: AMIODARONE 200 MG TABLET PO SCH ×2 (08:26→21:03)
[2020-09-14] MEDS: FERROUS SULFATE 325 MG TABLET PO SCH (08:26)
[2020-09-14] MEDS: DOCUSATE SODIUM 100 MG CAPSULE PO SCH (08:26)
[2020-09-14] MEDS: PANTOPRAZOLE 40 MG TABLET PO SCH (08:26)
[2020-09-14] MEDS: METOPROLOL SUCCINATE XL 25 MG TABLET PO SCH (08:26)
[2020-09-14] MEDS: POLYETHYLENE GLYCOL POWDER 17 GM PACK PO SCH (08:29)
[2020-09-14] MEDS ORDERED: SODIUM CHLORIDE 0.9% 1,000 ML IV PRN (12:10)
[2020-09-14] MEDS: BUDESONIDE 0.5 MG/2 ML NEB RESP TX SCH ×2 (14:10→19:20)
[2020-09-14] MEDS: WARFARIN 2.5 MG TABLET PO SCH (18:05)
[2020-09-14] MEDS: ESCITALOPRAM 10 MG TABLET PO SCH (21:03)
[2020-09-14] MEDS: ROSUVASTATIN 20 MG TABLET PO SCH (21:03)
[2020-09-14] MEDS: ALFUZOSIN 10 MG TABLET PO SCH (21:03)
[2020-09-15] MEDS: ALBUTEROL/IPRATROPIUM 3 ML NEB RESP TX SCH ×4 (01:06→19:12)
[2020-09-15 04:32] LABS: Basophils % 0.2 % (0.0-0.8); Eosinophils # 0.6 10*3/uL (0.0-0.87); Eosinophils % 5.3 % (0.00-10.9); Hematocrit 31.8 VOL% (42.0-52.0); Hemoglobin 10.5 GM/DL (14.0-18.0); Immature Granulocytes % 1.5 %; Immature Granulocytes Absolute 0.16 #; Lymphocytes # 0.9 10*3/uL (1.4-4.0); Lymphocytes % 8.8 % (21.2-54.2); Mean Corpuscular Volume 91.4 FL (87-102); Mean Platelet Volume 11.5 FL (9.6-12.0); Monocytes % 8.8 % (1.7-12.7); NRBC # 0.02 10*3/uL; Neutrophils % 75.4 % (38.7-73.9); Platelet Count 220 T/CUMM (130-400); Red Blood Count 3.48 MC/CUMM (3.8-5.5); Red Cell Distribution Width 15.6 % (9.3-17.3); White Blood Count 10.6 T/CUMM (4-12)
[2020-09-15 04:47] LABS: Calcium 7.8 MG/DL (8.5-10.1); INR 2.6; Osmolality,Calculated 275.8 MOS/KG (273-304); Potassium 3.3 MMOL/L (3.5-5.1)
[2020-09-15 04:50] LABS: PT Patient Result 26.1 SECS (9.8-11.9)
[2020-09-15] MEDS: BUDESONIDE 0.5 MG/2 ML NEB RESP TX SCH ×2 (07:25→19:12)
[2020-09-15] MEDS ORDERED: POTASSIUM CHLORIDE 20 MEQ TABLET PO ONE (08:31)
[2020-09-15] MEDS: FERROUS SULFATE 325 MG TABLET PO SCH (09:42)
[2020-09-15] MEDS: POLYETHYLENE GLYCOL POWDER 17 GM PACK PO SCH (09:42)
[2020-09-15] MEDS: DOCUSATE SODIUM 100 MG CAPSULE PO SCH (09:43)
[2020-09-15] MEDS: PANTOPRAZOLE 40 MG TABLET PO SCH (09:43)
[2020-09-15] MEDS: METOPROLOL SUCCINATE XL 25 MG TABLET PO SCH (09:43)
[2020-09-15] MEDS: ASPIRIN EC 81 MG TABLET PO SCH (09:43)
[2020-09-15] MEDS: AMIODARONE 200 MG TABLET PO SCH ×2 (09:43→21:10)
[2020-09-15] MEDS: CHLORHEXIDINE 0.12% ORAL RINSE 60 ML BOTTLE SWISH/SPIT SCH ×2 (09:46→21:10)
[2020-09-15] MEDS: WARFARIN 2.5 MG TABLET PO SCH (17:37)
[2020-09-15] MEDS: ALFUZOSIN 10 MG TABLET PO SCH (21:10)
[2020-09-15] MEDS: ROSUVASTATIN 20 MG TABLET PO SCH (21:10)
[2020-09-15] MEDS: ESCITALOPRAM 10 MG TABLET PO SCH (21:10)
[2020-09-16 05:17] LABS: Basophils % 0.2 % (0.0-0.8); Eosinophils # 0.5 10*3/uL (0.0-0.87); Eosinophils % 3.6 % (0.00-10.9); Hematocrit 33.6 VOL% (42.0-52.0); Hemoglobin 11.1 GM/DL (14.0-18.0); Immature Granulocytes % 1.6 %; Immature Granulocytes Absolute 0.21 #; Lymphocytes # 0.8 10*3/uL (1.4-4.0); Lymphocytes % 6.3 % (21.2-54.2); Mean Corpuscular Volume 92.1 FL (87-102); Mean Platelet Volume 11.2 FL (9.6-12.0); Monocytes % 9.6 % (1.7-12.7); Neutrophils % 78.7 % (38.7-73.9); Platelet Count 251 T/CUMM (130-400); Red Blood Count 3.65 MC/CUMM (3.8-5.5); White Blood Count 12.9 T/CUMM (4-12)
[2020-09-16 05:33] LABS: INR 2.3; PT Patient Result 24.1 SECS (9.8-11.9)
[2020-09-16 05:37] LABS: Calcium 8.2 MG/DL (8.5-10.1); Potassium 3.9 MMOL/L (3.5-5.1)
[2020-09-16] MEDS: ALBUTEROL/IPRATROPIUM 3 ML NEB RESP TX SCH ×4 (07:40→18:51)
[2020-09-16] MEDS: BUDESONIDE 0.5 MG/2 ML NEB RESP TX SCH ×2 (07:40→18:51)
[2020-09-16] MEDS: POLYETHYLENE GLYCOL POWDER 17 GM PACK PO SCH (09:43)
[2020-09-16] MEDS: DOCUSATE SODIUM 100 MG CAPSULE PO SCH (09:44)
[2020-09-16] MEDS: AMIODARONE 200 MG TABLET PO SCH ×2 (09:44→21:32)
[2020-09-16] MEDS: PANTOPRAZOLE 40 MG TABLET PO SCH (09:45)
[2020-09-16] MEDS: METOPROLOL SUCCINATE XL 25 MG TABLET PO SCH (09:45)
[2020-09-16] MEDS: CHLORHEXIDINE 0.12% ORAL RINSE 60 ML BOTTLE SWISH/SPIT SCH ×2 (09:46→21:32)
[2020-09-16] MEDS: ASPIRIN EC 81 MG TABLET PO SCH (09:47)
[2020-09-16] MEDS ORDERED: LACTULOSE 20 GM/30 ML UDCUP PO ONE (10:00)
[2020-09-16] MEDS: FERROUS SULFATE 325 MG TABLET PO SCH (11:54)
[2020-09-16] MEDS: WARFARIN 2.5 MG TABLET PO SCH (17:51)
[2020-09-16] MEDS: ALFUZOSIN 10 MG TABLET PO SCH (21:32)
[2020-09-16] MEDS: ESCITALOPRAM 10 MG TABLET PO SCH (21:32)
[2020-09-16] MEDS: ROSUVASTATIN 20 MG TABLET PO SCH (21:32)
[2020-09-17] MEDS: ALBUTEROL/IPRATROPIUM 3 ML NEB RESP TX SCH ×4 (00:51→18:30)
[2020-09-17 06:30] LABS: Basophils % 0.2 % (0.0-0.8); Eosinophils # 0.5 10*3/uL (0.0-0.87); Eosinophils % 4.2 % (0.00-10.9); Hematocrit 34.4 VOL% (42.0-52.0); Hemoglobin 11.1 GM/DL (14.0-18.0); Immature Granulocytes % 1.8 %; Immature Granulocytes Absolute 0.21 #; Lymphocytes # 1.1 10*3/uL (1.4-4.0); Lymphocytes % 9.2 % (21.2-54.2); Mean Corpuscular HGB Conc 32.3 GM/DL (32-36); Mean Corpuscular Volume 93.7 FL (87-102); Mean Platelet Volume 10.5 FL (9.6-12.0); Monocytes % 11.7 % (1.7-12.7); Neutrophils % 72.9 % (38.7-73.9); Platelet Count 263 T/CUMM (130-400); Red Blood Count 3.67 MC/CUMM (3.8-5.5); Red Cell Distribution Width 14.9 % (9.3-17.3); White Blood Count 11.7 T/CUMM (4-12)
[2020-09-17 06:43] LABS: Calcium 7.7 MG/DL (8.5-10.1); Osmolality,Calculated 276.7 MOS/KG (273-304); Potassium 3.6 MMOL/L (3.5-5.1)
[2020-09-17 07:03] LABS: INR 2.9
[2020-09-17] MEDS: BUDESONIDE 0.5 MG/2 ML NEB RESP TX SCH ×2 (07:22→18:30)
[2020-09-17] MEDS: DOCUSATE SODIUM 100 MG CAPSULE PO SCH (09:57)
[2020-09-17] MEDS: METOPROLOL SUCCINATE XL 25 MG TABLET PO SCH (09:57)
[2020-09-17] MEDS: PANTOPRAZOLE 40 MG TABLET PO SCH (09:58)
[2020-09-17] MEDS: ASPIRIN EC 81 MG TABLET PO SCH (09:58)
[2020-09-17] MEDS: AMIODARONE 200 MG TABLET PO SCH ×2 (09:59→21:16)
[2020-09-17] MEDS: CHLORHEXIDINE 0.12% ORAL RINSE 60 ML BOTTLE SWISH/SPIT SCH ×2 (10:03→21:16)
[2020-09-17] MEDS: POLYETHYLENE GLYCOL POWDER 17 GM PACK PO SCH (10:03)
[2020-09-17] MEDS: WARFARIN 2.5 MG TABLET PO SCH (17:49)
[2020-09-17] MEDS: ROSUVASTATIN 20 MG TABLET PO SCH (21:16)
[2020-09-17] MEDS: ALFUZOSIN 10 MG TABLET PO SCH (21:16)
[2020-09-17] MEDS: ESCITALOPRAM 10 MG TABLET PO SCH (21:16)
[2020-09-17] MEDS ORDERED: ALBUTEROL/IPRATROPIUM 3 ML NEB RESP TX PRN (22:08)
[2020-09-17] MEDS: CLORAZEPATE 3.75 MG TABLET PO PRN (22:31)
[2020-09-18] MEDS: ALBUTEROL/IPRATROPIUM 3 ML NEB RESP TX SCH ×4 (05:50→19:45)
[2020-09-18 07:12] LABS: Basophils % 0.1 % (0.0-0.8); Eosinophils # 0.4 10*3/uL (0.0-0.87); Eosinophils % 3.5 % (0.00-10.9); Hematocrit 31.5 VOL% (42.0-52.0); Hemoglobin 10.1 GM/DL (14.0-18.0); Immature Granulocytes % 2.2 %; Immature Granulocytes Absolute 0.23 #; Lymphocytes % 9.7 % (21.2-54.2); Mean Corpuscular HGB Conc 32.1 GM/DL (32-36); Mean Corpuscular Volume 93.2 FL (87-102); Mean Platelet Volume 10.6 FL (9.6-12.0); Monocytes % 9.2 % (1.7-12.7); Neutrophils % 75.3 % (38.7-73.9); Platelet Count 241 T/CUMM (130-400); Red Blood Count 3.38 MC/CUMM (3.8-5.5); Red Cell Distribution Width 14.7 % (9.3-17.3); White Blood Count 10.3 T/CUMM (4-12)
[2020-09-18] MEDS: BUDESONIDE 0.5 MG/2 ML NEB RESP TX SCH ×2 (07:17→19:45)
[2020-09-18 07:23] LABS: INR 2.8; PT Patient Result 28.4 SECS (9.8-11.9)
[2020-09-18 07:28] LABS: Calcium 7.8 MG/DL (8.5-10.1); Osmolality,Calculated 275.8 MOS/KG (273-304); Potassium 3.7 MMOL/L (3.5-5.1)
[2020-09-18] MEDS: METOPROLOL SUCCINATE XL 25 MG TABLET PO SCH (08:59)
[2020-09-18] MEDS: DOCUSATE SODIUM 100 MG CAPSULE PO SCH (08:59)
[2020-09-18] MEDS: PANTOPRAZOLE 40 MG TABLET PO SCH (08:59)
[2020-09-18] MEDS: AMIODARONE 200 MG TABLET PO SCH (08:59)
[2020-09-18] MEDS: POLYETHYLENE GLYCOL POWDER 17 GM PACK PO SCH (08:59)
[2020-09-18] MEDS: ASPIRIN EC 81 MG TABLET PO SCH (08:59)
[2020-09-18] MEDS: POTASSIUM CHLORIDE 20 MEQ TABLET PO PRN ×2 (09:00→13:31)
[2020-09-18] MEDS: CHLORHEXIDINE 0.12% ORAL RINSE 60 ML BOTTLE SWISH/SPIT SCH ×2 (09:04→20:28)
[2020-09-18 10:52] LABS: ABG Base Excess 5.2 MMOL/L (-2.5-2.5); ABG HCO3 29.5 MMOL/L (20-26); ABG Oxygen Saturation 97.6 % (95-100); ABG PCO2 42.2 MM HG (35-48); ABG PH 7.462 (7.35-7.45); ABG PO2 101.2 MM HG (80-95); ABG TCO2 30.8 MMOL/L (23-27); Allen Test Positive
[2020-09-18] MEDS ORDERED: WARFARIN 2 MG TABLET PO ONE (18:00)
[2020-09-18] MEDS: ESCITALOPRAM 10 MG TABLET PO SCH (20:28)
[2020-09-18] MEDS: ROSUVASTATIN 20 MG TABLET PO SCH (20:28)
[2020-09-18] MEDS: ALFUZOSIN 10 MG TABLET PO SCH (20:28)
[2020-09-19] MEDS: ALBUTEROL/IPRATROPIUM 3 ML NEB RESP TX SCH ×4 (00:24→19:40)
[2020-09-19 07:18] LABS: Basophils % 0.4 % (0.0-0.8); Eosinophils # 0.4 10*3/uL (0.0-0.87); Eosinophils % 3.5 % (0.00-10.9); Hematocrit 32.5 VOL% (42.0-52.0); Hemoglobin 10.7 GM/DL (14.0-18.0); Immature Granulocytes % 1.2 %; Immature Granulocytes Absolute 0.13 #; Lymphocytes # 0.8 10*3/uL (1.4-4.0); Lymphocytes % 7.5 % (21.2-54.2); Mean Corpuscular HGB Conc 32.9 GM/DL (32-36); Mean Corpuscular Volume 92.9 FL (87-102); Mean Platelet Volume 10.7 FL (9.6-12.0); Neutrophils % 78.4 % (38.7-73.9); Platelet Count 253 T/CUMM (130-400); Red Cell Distribution Width 14.6 % (9.3-17.3); White Blood Count 11.2 T/CUMM (4-12)
[2020-09-19] MEDS: BUDESONIDE 0.5 MG/2 ML NEB RESP TX SCH ×2 (07:21→19:40)
[2020-09-19 07:44] LABS: Calcium 7.8 MG/DL (8.5-10.1); Osmolality,Calculated 278.5 MOS/KG (273-304); Potassium 3.9 MMOL/L (3.5-5.1)
[2020-09-19] MEDS ORDERED: FUROSEMIDE 40 MG/4 ML VIAL IV ONE (07:51)
[2020-09-19] MEDS: METOPROLOL SUCCINATE XL 25 MG TABLET PO SCH (08:45)
[2020-09-19] MEDS: PANTOPRAZOLE 40 MG TABLET PO SCH (08:45)
[2020-09-19] MEDS: POLYETHYLENE GLYCOL POWDER 17 GM PACK PO SCH (08:45)
[2020-09-19] MEDS: ASPIRIN EC 81 MG TABLET PO SCH (08:45)
[2020-09-19] MEDS: DOCUSATE SODIUM 100 MG CAPSULE PO SCH (08:45)
[2020-09-19] MEDS: methylPREDNISolone SOD SUC 125 MG/2 ML VIAL IV SCH ×2 (08:46→21:39)
[2020-09-19] MEDS: CHLORHEXIDINE 0.12% ORAL RINSE 60 ML BOTTLE SWISH/SPIT SCH ×2 (09:02→21:44)
[2020-09-19 09:15] LABS: INR 2.8; PT Patient Result 28.7 SECS (9.8-11.9)
[2020-09-19] MEDS ORDERED: WARFARIN 2 MG TABLET PO ONE (18:00)
[2020-09-19] MEDS: ROSUVASTATIN 20 MG TABLET PO SCH (21:34)
[2020-09-19] MEDS: ALFUZOSIN 10 MG TABLET PO SCH (21:34)
[2020-09-19] MEDS: ESCITALOPRAM 10 MG TABLET PO SCH (21:43)
[2020-09-20] MEDS: ALBUTEROL/IPRATROPIUM 3 ML NEB RESP TX SCH ×4 (00:15→19:10)
[2020-09-20 04:20] LABS: Basophils % 0.2 % (0.0-0.8); Hematocrit 34.2 VOL% (42.0-52.0); Hemoglobin 11.1 GM/DL (14.0-18.0); Immature Granulocytes % 1.3 %; Immature Granulocytes Absolute 0.15 #; Lymphocytes # 0.5 10*3/uL (1.4-4.0); Lymphocytes % 4.1 % (21.2-54.2); Mean Corpuscular HGB Conc 32.5 GM/DL (32-36); Mean Corpuscular Volume 91.9 FL (87-102); Mean Platelet Volume 10.9 FL (9.6-12.0); Neutrophils % 92.4 % (38.7-73.9); Platelet Count 271 T/CUMM (130-400); Red Blood Count 3.72 MC/CUMM (3.8-5.5); Red Cell Distribution Width 14.4 % (9.3-17.3); White Blood Count 11.4 T/CUMM (4-12)
[2020-09-20 04:27] LABS: INR 2.5; PT Patient Result 25.3 SECS (9.8-11.9)
[2020-09-20 04:45] LABS: Calcium 8.7 MG/DL (8.5-10.1); Osmolality,Calculated 272.2 MOS/KG (273-304); Potassium 3.8 MMOL/L (3.5-5.1)
[2020-09-20 04:50] LABS: Albumin 3.2 G/DL (3.4-5.0); Bilirubin,Total 0.8 MG/DL (0.2-1.0); Calcium 8.5 MG/DL (8.5-10.1); Osmolality,Calculated 270.4 MOS/KG (273-304); Total Protein 5.8 G/DL (6.4-8.2)
[2020-09-20 04:59] LABS: Lymphocytes 1 % (20-55); Platelet Estimate Normal; Segmented Neutrophils 97 % (50-85); Total Cells Counted 100
[2020-09-20] MEDS: BUDESONIDE 0.5 MG/2 ML NEB RESP TX SCH ×2 (07:35→19:10)
[2020-09-20] MEDS: PANTOPRAZOLE 40 MG TABLET PO SCH (09:24)
[2020-09-20] MEDS: METOPROLOL SUCCINATE XL 25 MG TABLET PO SCH (09:24)
[2020-09-20] MEDS: ASPIRIN EC 81 MG TABLET PO SCH (09:24)
[2020-09-20] MEDS: CHLORHEXIDINE 0.12% ORAL RINSE 60 ML BOTTLE SWISH/SPIT SCH ×2 (09:25→20:50)
[2020-09-20] MEDS: POLYETHYLENE GLYCOL POWDER 17 GM PACK PO SCH (09:25)
[2020-09-20] MEDS: DOCUSATE SODIUM 100 MG CAPSULE PO SCH (09:25)
[2020-09-20] MEDS: methylPREDNISolone SOD SUC 125 MG/2 ML VIAL IV SCH ×2 (09:25→20:53)
[2020-09-20] MEDS: WARFARIN 2.5 MG TABLET PO SCH (17:52)
[2020-09-20] MEDS: ESCITALOPRAM 10 MG TABLET PO SCH (20:49)
[2020-09-20] MEDS: ROSUVASTATIN 20 MG TABLET PO SCH (20:49)
[2020-09-20] MEDS: ALFUZOSIN 10 MG TABLET PO SCH (20:49)
[2020-09-21 05:08] LABS: Basophils % 0.1 % (0.0-0.8); Hematocrit 32.8 VOL% (42.0-52.0); Hemoglobin 10.9 GM/DL (14.0-18.0); Immature Granulocytes % 1.2 %; Immature Granulocytes Absolute 0.14 #; Lymphocytes # 0.4 10*3/uL (1.4-4.0); Lymphocytes % 3.4 % (21.2-54.2); Mean Corpuscular HGB Conc 33.2 GM/DL (32-36); Mean Corpuscular Volume 90.4 FL (87-102); Mean Platelet Volume 10.6 FL (9.6-12.0); Monocytes % 3.4 % (1.7-12.7); Neutrophils % 91.9 % (38.7-73.9); Platelet Count 284 T/CUMM (130-400); Red Blood Count 3.63 MC/CUMM (3.8-5.5); Red Cell Distribution Width 14.5 % (9.3-17.3)
[2020-09-21 05:39] LABS: Hypochromasia 1+; Lymphocytes 3 % (20-55); Microcytosis 1+; Ovalocytes Slight; Segmented Neutrophils 93 % (50-85); Total Cells Counted 100
[2020-09-21 05:40] LABS: Platelet Estimate Normal
[2020-09-21 06:01] LABS: Calcium 8.7 MG/DL (8.5-10.1); Osmolality,Calculated 274.2 MOS/KG (273-304)
[2020-09-21] MEDS: BUDESONIDE 0.5 MG/2 ML NEB RESP TX SCH ×2 (07:30→19:34)
[2020-09-21] MEDS: ALBUTEROL/IPRATROPIUM 3 ML NEB RESP TX SCH ×4 (07:30→19:34)
[2020-09-21] MEDS: POLYETHYLENE GLYCOL POWDER 17 GM PACK PO SCH (09:32)
[2020-09-21] MEDS: methylPREDNISolone SOD SUC 125 MG/2 ML VIAL IV SCH ×2 (09:32→15:25)
[2020-09-21] MEDS: DOCUSATE SODIUM 100 MG CAPSULE PO SCH (09:33)
[2020-09-21] MEDS: CHLORHEXIDINE 0.12% ORAL RINSE 60 ML BOTTLE SWISH/SPIT SCH ×2 (09:33→21:08)
[2020-09-21] MEDS: ASPIRIN EC 81 MG TABLET PO SCH (09:33)
[2020-09-21] MEDS: METOPROLOL SUCCINATE XL 25 MG TABLET PO SCH ×2 (09:33→21:08)
[2020-09-21] MEDS: PANTOPRAZOLE 40 MG TABLET PO SCH ×2 (09:33→21:08)
[2020-09-21 10:03] LABS: INR 2.1; PT Patient Result 21.5 SECS (9.8-11.9)
[2020-09-21] MEDS: AMIODARONE 200 MG TABLET PO SCH ×2 (10:13→21:08)
[2020-09-21] MEDS: ROSUVASTATIN 20 MG TABLET PO SCH (21:08)
[2020-09-21] MEDS: ESCITALOPRAM 10 MG TABLET PO SCH (21:08)
[2020-09-21] MEDS: ALFUZOSIN 10 MG TABLET PO SCH (21:09)
[2020-09-22] MEDS: methylPREDNISolone SOD SUC 125 MG/2 ML VIAL IV SCH ×2 (00:47→10:22)
[2020-09-22] MEDS: ALBUTEROL/IPRATROPIUM 3 ML NEB RESP TX SCH ×4 (01:47→18:09)
[2020-09-22 06:15] LABS: Basophils % 0.1 % (0.0-0.8); Hemoglobin 9.8 GM/DL (14.0-18.0); Immature Granulocytes % 1.2 %; Immature Granulocytes Absolute 0.11 #; Lymphocytes # 0.5 10*3/uL (1.4-4.0); Lymphocytes % 5.3 % (21.2-54.2); Mean Corpuscular HGB Conc 31.6 GM/DL (32-36); Mean Corpuscular Volume 94.8 FL (87-102); Mean Platelet Volume 10.4 FL (9.6-12.0); Monocytes % 7.4 % (1.7-12.7); Platelet Count 248 T/CUMM (130-400); Red Blood Count 3.27 MC/CUMM (3.8-5.5); Red Cell Distribution Width 14.5 % (9.3-17.3); White Blood Count 9.2 T/CUMM (4-12)
[2020-09-22 06:21] LABS: INR 1.8; PT Patient Result 18.9 SECS (9.8-11.9)
[2020-09-22 06:25] LABS: Calcium 7.9 MG/DL (8.5-10.1); Osmolality,Calculated 277.8 MOS/KG (273-304)
[2020-09-22] MEDS: BUDESONIDE 0.5 MG/2 ML NEB RESP TX SCH ×2 (07:20→18:09)
[2020-09-22] MEDS: CLORAZEPATE 3.75 MG TABLET PO PRN (07:57)
[2020-09-22] MEDS: AMIODARONE 200 MG TABLET PO SCH ×2 (10:19→20:11)
[2020-09-22] MEDS: PANTOPRAZOLE 40 MG TABLET PO SCH ×2 (10:20→20:12)
[2020-09-22] MEDS: METOPROLOL SUCCINATE XL 25 MG TABLET PO SCH ×2 (10:20→20:12)
[2020-09-22] MEDS: ASPIRIN EC 81 MG TABLET PO SCH (10:20)
[2020-09-22] MEDS: POLYETHYLENE GLYCOL POWDER 17 GM PACK PO SCH (10:20)
[2020-09-22] MEDS: CHLORHEXIDINE 0.12% ORAL RINSE 60 ML BOTTLE SWISH/SPIT SCH ×2 (10:20→20:11)
[2020-09-22] MEDS: DOCUSATE SODIUM 100 MG CAPSULE PO SCH (10:20)
[2020-09-22] MEDS: methylPREDNISolone SOD SUC 40 MG/1 ML VIAL IV SCH ×2 (10:23→20:48)
[2020-09-22 10:49] LABS: Amylase,Body Fluid 8 U/L; Glucose,Pleural Fluid 135 MG/DL; LDH,Body Fluid 252 U/L; Total Protein,Body Fluid 2.5 G/DL
[2020-09-22 10:56] LABS: Lymphocytes,Pleural Fluid 77 %; Monocytes,Pleural Fluid 2 %; Neutrophils,Pleural Fluid 21 %
[2020-09-22 11:03] LABS: RBC,Pleural Fluid 44697 T/CUMM
[2020-09-22] MEDS: ENOXAPARIN 40 MG/0.4 ML SYRINGE SUBCUT SCH (17:34)
[2020-09-22] MEDS: WARFARIN 2.5 MG TABLET PO SCH (17:35)
[2020-09-22] MEDS: ESCITALOPRAM 10 MG TABLET PO SCH (20:11)
[2020-09-22] MEDS: ROSUVASTATIN 20 MG TABLET PO SCH (20:11)
[2020-09-22] MEDS: ALFUZOSIN 10 MG TABLET PO SCH (20:12)
[2020-09-23] MEDS: ALBUTEROL/IPRATROPIUM 3 ML NEB RESP TX SCH ×4 (01:00→20:32)
[2020-09-23 05:20] LABS: Basophils % 0.1 % (0.0-0.8); Hemoglobin 10.5 GM/DL (14.0-18.0); Immature Granulocytes % 0.9 %; Lymphocytes # 0.3 10*3/uL (1.4-4.0); Lymphocytes % 2.9 % (21.2-54.2); Mean Corpuscular HGB Conc 32.8 GM/DL (32-36); Mean Corpuscular Volume 93.3 FL (87-102); Mean Platelet Volume 11.1 FL (9.6-12.0); Monocytes % 6.4 % (1.7-12.7); Neutrophils % 89.7 % (38.7-73.9); Platelet Count 246 T/CUMM (130-400); Red Blood Count 3.43 MC/CUMM (3.8-5.5); Red Cell Distribution Width 14.6 % (9.3-17.3); White Blood Count 11.2 T/CUMM (4-12)
[2020-09-23 05:39] LABS: INR 1.8; PT Patient Result 18.8 SECS (9.8-11.9)
[2020-09-23 05:44] LABS: Band Neutrophils 1 % (0-10); Hypochromasia 1+; Lymphocytes 7 % (20-55); Microcytosis 1+; Segmented Neutrophils 85 % (50-85); Total Cells Counted 100
[2020-09-23 05:45] LABS: Platelet Estimate Normal
[2020-09-23 05:49] LABS: Calcium 7.4 MG/DL (8.5-10.1); Osmolality,Calculated 278.8 MOS/KG (273-304); Potassium 3.8 MMOL/L (3.5-5.1)
[2020-09-23] MEDS: BUDESONIDE 0.5 MG/2 ML NEB RESP TX SCH ×2 (07:48→20:32)
[2020-09-23] MEDS: methylPREDNISolone SOD SUC 40 MG/1 ML VIAL IV SCH ×2 (09:11→20:07)
[2020-09-23] MEDS: METOPROLOL SUCCINATE XL 25 MG TABLET PO SCH ×2 (09:11→20:07)
[2020-09-23] MEDS: DOCUSATE SODIUM 100 MG CAPSULE PO SCH (09:11)
[2020-09-23] MEDS: PANTOPRAZOLE 40 MG TABLET PO SCH ×2 (09:11→20:07)
[2020-09-23] MEDS: AMIODARONE 200 MG TABLET PO SCH ×2 (09:11→20:07)
[2020-09-23] MEDS: ASPIRIN EC 81 MG TABLET PO SCH (09:11)
[2020-09-23] MEDS: CHLORHEXIDINE 0.12% ORAL RINSE 60 ML BOTTLE SWISH/SPIT SCH ×2 (09:12→20:09)
[2020-09-23] MEDS: POLYETHYLENE GLYCOL POWDER 17 GM PACK PO SCH (09:12)
[2020-09-23] MEDS: WARFARIN 2.5 MG TABLET PO SCH (17:48)
[2020-09-23] MEDS: ENOXAPARIN 40 MG/0.4 ML SYRINGE SUBCUT SCH (17:49)
[2020-09-23] MEDS: ALFUZOSIN 10 MG TABLET PO SCH (20:06)
[2020-09-23] MEDS: ROSUVASTATIN 20 MG TABLET PO SCH (20:07)
[2020-09-23] MEDS: ESCITALOPRAM 10 MG TABLET PO SCH (20:07)
[2020-09-24] MEDS: ALBUTEROL/IPRATROPIUM 3 ML NEB RESP TX SCH ×4 (02:40→19:28)
[2020-09-24 05:55] LABS: Hematocrit 32.6 VOL% (42.0-52.0); Hemoglobin 10.2 GM/DL (14.0-18.0); Immature Granulocytes % 1.2 %; Lymphocytes # 0.3 10*3/uL (1.4-4.0); Lymphocytes % 3.3 % (21.2-54.2); Mean Corpuscular HGB Conc 31.3 GM/DL (32-36); Mean Platelet Volume 11.1 FL (9.6-12.0); Monocytes % 4.3 % (1.7-12.7); Neutrophils % 91.2 % (38.7-73.9); Platelet Count 240 T/CUMM (130-400); Red Blood Count 3.43 MC/CUMM (3.8-5.5); Red Cell Distribution Width 14.4 % (9.3-17.3); White Blood Count 8.5 T/CUMM (4-12)
[2020-09-24 06:03] LABS: INR 1.8; PT Patient Result 18.6 SECS (9.8-11.9)
[2020-09-24 06:11] LABS: Calcium 7.8 MG/DL (8.5-10.1); Osmolality,Calculated 280.7 MOS/KG (273-304); Potassium 4.1 MMOL/L (3.5-5.1)
[2020-09-24 06:15] LABS: Anisocytosis 1+; Band Neutrophils 1 % (0-10); Lymphocytes 4 % (20-55); Platelet Estimate Normal; Segmented Neutrophils 90 % (50-85); Total Cells Counted 100
[2020-09-24] MEDS: BUDESONIDE 0.5 MG/2 ML NEB RESP TX SCH ×2 (07:01→19:28)
[2020-09-24] MEDS: DOCUSATE SODIUM 100 MG CAPSULE PO SCH (08:38)
[2020-09-24] MEDS: METOPROLOL SUCCINATE XL 25 MG TABLET PO SCH ×2 (08:38→20:52)
[2020-09-24] MEDS: methylPREDNISolone SOD SUC 40 MG/1 ML VIAL IV SCH ×2 (08:39→20:53)
[2020-09-24] MEDS: CHLORHEXIDINE 0.12% ORAL RINSE 60 ML BOTTLE SWISH/SPIT SCH ×2 (08:39→20:54)
[2020-09-24] MEDS: POLYETHYLENE GLYCOL POWDER 17 GM PACK PO SCH (08:39)
[2020-09-24] MEDS: PANTOPRAZOLE 40 MG TABLET PO SCH ×2 (08:39→20:51)
[2020-09-24] MEDS: ASPIRIN EC 81 MG TABLET PO SCH (08:39)
[2020-09-24] MEDS: AMIODARONE 200 MG TABLET PO SCH ×2 (08:39→20:52)
[2020-09-24] MEDS: ENOXAPARIN 40 MG/0.4 ML SYRINGE SUBCUT SCH (17:22)
[2020-09-24] MEDS: WARFARIN 2.5 MG TABLET PO SCH (17:22)
[2020-09-24] MEDS: ROSUVASTATIN 20 MG TABLET PO SCH (20:51)
[2020-09-24] MEDS: ALFUZOSIN 10 MG TABLET PO SCH (20:51)
[2020-09-24] MEDS: ESCITALOPRAM 10 MG TABLET PO SCH (20:52)
[2020-09-25] MEDS: ALBUTEROL/IPRATROPIUM 3 ML NEB RESP TX SCH ×4 (00:38→19:36)
[2020-09-25 06:08] LABS: Hematocrit 33.5 VOL% (42.0-52.0); Hemoglobin 10.6 GM/DL (14.0-18.0); Immature Granulocytes % 0.9 %; Immature Granulocytes Absolute 0.08 #; Lymphocytes # 0.2 10*3/uL (1.4-4.0); Lymphocytes % 2.8 % (21.2-54.2); Mean Corpuscular HGB Conc 31.6 GM/DL (32-36); Mean Corpuscular Volume 95.2 FL (87-102); Mean Platelet Volume 11.4 FL (9.6-12.0); Monocytes % 2.8 % (1.7-12.7); Neutrophils % 93.5 % (38.7-73.9); Platelet Count 240 T/CUMM (130-400); Red Blood Count 3.52 MC/CUMM (3.8-5.5); Red Cell Distribution Width 14.6 % (9.3-17.3); White Blood Count 8.6 T/CUMM (4-12)
[2020-09-25 06:16] LABS: INR 1.8; PT Patient Result 18.9 SECS (9.8-11.9)
[2020-09-25 06:26] LABS: Calcium 7.8 MG/DL (8.5-10.1); Osmolality,Calculated 278.8 MOS/KG (273-304); Potassium 4.1 MMOL/L (3.5-5.1)
[2020-09-25] MEDS: BUDESONIDE 0.5 MG/2 ML NEB RESP TX SCH ×2 (07:15→19:36)
[2020-09-25 08:15] LABS: Band Neutrophils 2 % (0-10); Lymphocytes 4 % (20-55); Myelocytes 2 %; Platelet Estimate Normal; Segmented Neutrophils 87 % (50-85); Total Cells Counted 100
[2020-09-25 08:16] LABS: Anisocytosis Slight; Macrocytosis 1+
[2020-09-25 08:17] LABS: Hypersegmented Neutrophil Few
[2020-09-25] MEDS: POLYETHYLENE GLYCOL POWDER 17 GM PACK PO SCH (08:33)
[2020-09-25] MEDS: ASPIRIN EC 81 MG TABLET PO SCH (08:34)
[2020-09-25] MEDS: AMIODARONE 200 MG TABLET PO SCH ×2 (08:34→20:21)
[2020-09-25] MEDS: DOCUSATE SODIUM 100 MG CAPSULE PO SCH (08:34)
[2020-09-25] MEDS: methylPREDNISolone SOD SUC 40 MG/1 ML VIAL IV SCH ×2 (08:34→20:30)
[2020-09-25] MEDS: PANTOPRAZOLE 40 MG TABLET PO SCH ×2 (08:34→20:21)
[2020-09-25] MEDS: METOPROLOL SUCCINATE XL 25 MG TABLET PO SCH ×2 (08:34→20:21)
[2020-09-25] MEDS: CHLORHEXIDINE 0.12% ORAL RINSE 60 ML BOTTLE SWISH/SPIT SCH ×2 (08:35→20:23)
[2020-09-25] MEDS: ENOXAPARIN 40 MG/0.4 ML SYRINGE SUBCUT SCH (18:04)
[2020-09-25] MEDS: WARFARIN 2.5 MG TABLET PO SCH (18:04)
[2020-09-25] MEDS: ROSUVASTATIN 20 MG TABLET PO SCH (20:21)
[2020-09-25] MEDS: ALFUZOSIN 10 MG TABLET PO SCH (20:21)
[2020-09-25] MEDS: ESCITALOPRAM 10 MG TABLET PO SCH (20:21)
[2020-09-26] MEDS: ALBUTEROL/IPRATROPIUM 3 ML NEB RESP TX SCH ×2 (00:08→07:43)
[2020-09-26 06:14] LABS: Basophils % 0.1 % (0.0-0.8); Hematocrit 32.6 VOL% (42.0-52.0); Hemoglobin 10.5 GM/DL (14.0-18.0); Immature Granulocytes Absolute 0.09 #; Lymphocytes # 0.2 10*3/uL (1.4-4.0); Lymphocytes % 2.4 % (21.2-54.2); Mean Corpuscular HGB Conc 32.2 GM/DL (32-36); Mean Corpuscular Volume 94.5 FL (87-102); Mean Platelet Volume 11.2 FL (9.6-12.0); Monocytes % 4.4 % (1.7-12.7); Neutrophils % 92.1 % (38.7-73.9); Platelet Count 210 T/CUMM (130-400); Red Blood Count 3.45 MC/CUMM (3.8-5.5); Red Cell Distribution Width 14.8 % (9.3-17.3); White Blood Count 8.8 T/CUMM (4-12)
[2020-09-26 06:17] LABS: INR 1.9; PT Patient Result 19.3 SECS (9.8-11.9)
[2020-09-26 06:41] LABS: Calcium 7.7 MG/DL (8.5-10.1); Osmolality,Calculated 274.1 MOS/KG (273-304); Potassium 3.8 MMOL/L (3.5-5.1)
[2020-09-26 06:42] LABS: Anisocytosis 1+; Hypochromasia 1+; Lymphocytes 1 % (20-55); Macrocytosis 1+; Segmented Neutrophils 94 % (50-85); Total Cells Counted 100
[2020-09-26 06:44] LABS: Platelet Estimate Normal
[2020-09-26] MEDS: BUDESONIDE 0.5 MG/2 ML NEB RESP TX SCH (07:43)
[2020-09-26] MEDS: POLYETHYLENE GLYCOL POWDER 17 GM PACK PO SCH (09:40)
[2020-09-26] MEDS: AMIODARONE 200 MG TABLET PO SCH (09:41)
[2020-09-26] MEDS: PANTOPRAZOLE 40 MG TABLET PO SCH (09:41)
[2020-09-26] MEDS: METOPROLOL SUCCINATE XL 25 MG TABLET PO SCH (09:41)
[2020-09-26] MEDS: ASPIRIN EC 81 MG TABLET PO SCH (09:42)
[2020-09-26] MEDS: CHLORHEXIDINE 0.12% ORAL RINSE 60 ML BOTTLE SWISH/SPIT SCH (09:42)
[2020-09-26] MEDS: methylPREDNISolone SOD SUC 40 MG/1 ML VIAL IV SCH (09:42)
[2020-09-26] MEDS: DOCUSATE SODIUM 100 MG CAPSULE PO SCH (09:42)
[2020-09-26 13:44] VITALS: BP 149/69
== END 2020-09-26 14:35 | disposition home health service (06) | DRG 220 ==
LOC: N.4E 09:01 → N.CVR 09-08 13:29 → N.ICU 09-09 09:40 → N.TELES 09-09 13:17
PROC: CABGAVR (ICD-10-PCS; 2020-09-08 06:51)

== ENCOUNTER 2020-10-16 12:42 | Inpatient (IN) ==
[2020-10-16 13:11] LABS: Basophils % 0.3 % (0.0-0.8); Eosinophils # 0.4 10*3/uL (0.0-0.87); Eosinophils % 4.5 % (0.00-10.9); Hematocrit 39.7 VOL% (42.0-52.0); Hemoglobin 12.9 GM/DL (14.0-18.0); Immature Granulocytes % 0.8 %; Immature Granulocytes Absolute 0.06 #; Lymphocytes # 0.9 10*3/uL (1.4-4.0); Mean Corpuscular HGB Conc 32.5 GM/DL (32-36); Mean Platelet Volume 11.7 FL (9.6-12.0); Neutrophils % 72.4 % (38.7-73.9); Platelet Count 190 T/CUMM (130-400); Red Blood Count 4.27 MC/CUMM (3.8-5.5); Red Cell Distribution Width 16.6 % (9.3-17.3); White Blood Count 7.8 T/CUMM (4-12)
[2020-10-16] MEDS ORDERED: FUROSEMIDE 40 MG/4 ML VIAL IV STA (13:11)
[2020-10-16 13:21] LABS: INR 2.1; Partial Thromboplastin Time 29.3 SECS (23.9-33.8)
[2020-10-16 13:30] LABS: Bilirubin,Urine Negative (Negative); Blood, Urine Negative (Negative); Glucose,Urine (UA) Negative (Negative); Ketones,Urine 5 mg/dL (Negative); Mucus,Urine Occasional /LPF (Occasional); Nitrite,Urine Negative (Negative); Protein,Urine Negative; RBC,Urine 1 /HPF (0-4); Squamous Epithelial Cell,Urine Occasional /HPF (0-10); Urine Appearance CLEAR (Clear); Urine Color Straw (Yellow); Urine Specific Gravity 1.009 (1.001-1.035); Urine Urobilinogen < 2.0 EU/DL (0.2-1.0)
[2020-10-16 13:33] LABS: PT Patient Result 22.2 SECS (10.5-12.0)
[2020-10-16 13:36] LABS: Barbiturates Screen,Urine Negative (Negative); Benzodiazepines Screen,Urine Negative (Negative); Cannabinoid Screen,Urine Negative (Negative); Opiate Screen,Urine Negative (Negative); Phencyclidine Screen,Urine Negative (Negative)
[2020-10-16 13:45] LABS: Lactic Acid 1.2 MMOL/L (0.4-2.0)
[2020-10-16 13:52] LABS: Alanine Aminotransferase 44 U/L (16-61); Albumin 3.5 G/DL (3.4-5.0); Alkaline Phosphatase 127 U/L (45-117); Aspartate Amino Transferase 21 U/L (0-37); Blood Urea Nitrogen 13 MG/DL (7-18); Calcium 8.6 MG/DL (8.5-10.1); Carbon Dioxide 30 MMOL/L (21-32); Estimated Glom Filtration Rate 98 ML/MIN; Glucose 98 MG/DL (74-106); Osmolality,Calculated 274.7 MOS/KG (273-304); Potassium 3.5 MMOL/L (3.5-5.1); Sodium 138 MMOL/L (136-145); Total Protein 6.3 G/DL (6.4-8.2)
[2020-10-16 14:01] LABS: ABG Base Excess 3.8 MMOL/L (-2.5-2.5); ABG HCO3 27.9 MMOL/L (20-26); ABG Oxygen Saturation 98.9 % (95-100); ABG PH 7.424 (7.35-7.45); ABG TCO2 25.2 MMOL/L (23-27)
[2020-10-16] MEDS ORDERED: ONDANSETRON 4 MG/2 ML VIAL IV PRN (14:41)
[2020-10-16] MEDS ORDERED: ALBUTEROL 2.5 MG/3 ML NEB RESP TX PRN (14:41)
[2020-10-16] MEDS ORDERED: DOCUSATE SODIUM 100 MG CAPSULE PO PRN (14:41)
[2020-10-16] MEDS ORDERED: AMMONIA INHALANT 1 EACH AMP INH ONE (14:45)
[2020-10-16] MEDS ORDERED: ENOXAPARIN 40 MG/0.4 ML SYRINGE SUBCUT SCH (18:00)
[2020-10-16] MEDS: WARFARIN 2.5 MG TABLET PO SCH ×2 (18:36→20:58)
[2020-10-16] MEDS: ESCITALOPRAM 10 MG TABLET PO SCH ×2 (18:37→20:58)
[2020-10-16] MEDS: NON-FORMULARY MEDICATION PO SCH (18:37)
[2020-10-16] MEDS: METOPROLOL SUCCINATE XL 25 MG TABLET PO SCH (20:58)
[2020-10-16] MEDS: buPROPion SR 100 MG TABLET PO SCH (20:58)
[2020-10-16] MEDS: ROSUVASTATIN 20 MG TABLET PO SCH (20:58)
[2020-10-16] MEDS ORDERED: OLANZapine 2.5 MG TABLET PO SCH (21:00)
[2020-10-17 06:10] LABS: INR 2.3
[2020-10-17 06:13] LABS: Basophils % 0.4 % (0.0-0.8); Eosinophils # 0.3 10*3/uL (0.0-0.87); Eosinophils % 3.4 % (0.00-10.9); Hematocrit 41.4 VOL% (42.0-52.0); Immature Granulocytes % 0.9 %; Immature Granulocytes Absolute 0.07 #; Lymphocytes # 0.7 10*3/uL (1.4-4.0); Lymphocytes % 9.3 % (21.2-54.2); Mean Corpuscular HGB Conc 31.4 GM/DL (32-36); Mean Corpuscular Volume 95.2 FL (87-102); Mean Platelet Volume 11.6 FL (9.6-12.0); Monocytes % 11.4 % (1.7-12.7); Neutrophils % 74.6 % (38.7-73.9); Platelet Count 185 T/CUMM (130-400); Red Blood Count 4.35 MC/CUMM (3.8-5.5); Red Cell Distribution Width 16.5 % (9.3-17.3)
[2020-10-17 06:25] LABS: Albumin 3.1 G/DL (3.4-5.0); Bilirubin,Total 1.8 MG/DL (0.2-1.0); Calcium 8.6 MG/DL (8.5-10.1); Osmolality,Calculated 277.4 MOS/KG (273-304); Potassium 2.9 MMOL/L (3.5-5.1); Risk Ratio 3.12; Thyroid Stimulating Hormone 4.49 uIU/ml (0.358-3.74); Total Protein 5.8 G/DL (6.4-8.2); VLDL CHOLESTEROL 16.6 MG/DL
[2020-10-17 07:10] LABS: Folate 19.71 NG/ML (5.38-24.0)
[2020-10-17] MEDS ORDERED: PANTOPRAZOLE 40 MG TABLET PO SCH (09:00)
[2020-10-17] MEDS ORDERED: PANTOPRAZOLE 40 MG VIAL IV SCH (09:00)
[2020-10-17] MEDS: POTASSIUM CHLORIDE 20 MEQ TABLET PO SCH ×2 (10:30→17:20)
[2020-10-17] MEDS: METOPROLOL SUCCINATE XL 25 MG TABLET PO SCH ×2 (10:30→21:00)
[2020-10-17] MEDS: buPROPion SR 100 MG TABLET PO SCH ×2 (10:30→21:00)
[2020-10-17] MEDS: ASPIRIN EC 81 MG TABLET PO SCH (10:30)
[2020-10-17] MEDS: ESCITALOPRAM 10 MG TABLET PO SCH (18:47)
[2020-10-17] MEDS: WARFARIN 2.5 MG TABLET PO SCH (18:47)
[2020-10-17] MEDS: NON-FORMULARY MEDICATION PO SCH (20:02)
[2020-10-17] MEDS: ZALEPLON 5 MG CAPSULE PO PRN (21:00)
[2020-10-17] MEDS ORDERED: OLANZapine 5 MG TABLET PO SCH (21:00)
[2020-10-17] MEDS: ROSUVASTATIN 20 MG TABLET PO SCH (21:00)
[2020-10-18 05:35] LABS: INR 3.6; PT Patient Result 36.8 SECS (10.5-12.0)
[2020-10-18 05:41] LABS: Basophils % 0.4 % (0.0-0.8); Eosinophils # 0.5 10*3/uL (0.0-0.87); Eosinophils % 5.9 % (0.00-10.9); Hematocrit 38.5 VOL% (42.0-52.0); Hemoglobin 12.8 GM/DL (14.0-18.0); Immature Granulocytes Absolute 0.08 #; Lymphocytes # 0.9 10*3/uL (1.4-4.0); Lymphocytes % 10.9 % (21.2-54.2); Mean Corpuscular HGB Conc 33.2 GM/DL (32-36); Mean Corpuscular Volume 90.4 FL (87-102); Mean Platelet Volume 11.7 FL (9.6-12.0); Monocytes % 11.9 % (1.7-12.7); Neutrophils % 69.9 % (38.7-73.9); Platelet Count 207 T/CUMM (130-400); Red Blood Count 4.26 MC/CUMM (3.8-5.5); Red Cell Distribution Width 16.5 % (9.3-17.3); White Blood Count 7.9 T/CUMM (4-12)
[2020-10-18 05:53] LABS: Calcium 8.7 MG/DL (8.5-10.1); Osmolality,Calculated 280.3 MOS/KG (273-304); Potassium 3.5 MMOL/L (3.5-5.1)
[2020-10-18] MEDS: METOPROLOL SUCCINATE XL 25 MG TABLET PO SCH ×3 (08:16→21:51)
[2020-10-18] MEDS: buPROPion SR 100 MG TABLET PO SCH ×2 (08:16→10:12)
[2020-10-18] MEDS: PANTOPRAZOLE 40 MG TABLET PO SCH ×2 (08:16→10:12)
[2020-10-18] MEDS: DOCUSATE SODIUM 100 MG CAPSULE PO SCH ×2 (08:16→10:11)
[2020-10-18] MEDS: ASPIRIN EC 81 MG TABLET PO SCH ×2 (08:16→10:11)
[2020-10-18] MEDS: ALFUZOSIN 10 MG TABLET PO SCH ×2 (08:16→10:12)
[2020-10-18] MEDS: AMIODARONE 200 MG TABLET PO SCH ×3 (08:17→21:51)
[2020-10-18] MEDS ORDERED: OLANZapine 5 MG TABLET PO SCH (21:00)
[2020-10-18] MEDS: NON-FORMULARY MEDICATION PO SCH (21:49)
[2020-10-18] MEDS: ZALEPLON 5 MG CAPSULE PO PRN (21:50)
[2020-10-18] MEDS: ESCITALOPRAM 10 MG TABLET PO SCH (21:50)
[2020-10-18] MEDS: ROSUVASTATIN 20 MG TABLET PO SCH (21:51)
[2020-10-19 06:53] LABS: Basophils % 0.4 % (0.0-0.8); Eosinophils # 0.2 10*3/uL (0.0-0.87); Hematocrit 36.8 VOL% (42.0-52.0); Immature Granulocytes % 0.8 %; Immature Granulocytes Absolute 0.06 #; Lymphocytes # 0.4 10*3/uL (1.4-4.0); Lymphocytes % 5.8 % (21.2-54.2); Mean Corpuscular HGB Conc 32.6 GM/DL (32-36); Mean Corpuscular Volume 92.2 FL (87-102); Mean Platelet Volume 11.3 FL (9.6-12.0); Monocytes % 10.7 % (1.7-12.7); Neutrophils % 79.3 % (38.7-73.9); Platelet Count 162 T/CUMM (130-400); Red Blood Count 3.99 MC/CUMM (3.8-5.5); Red Cell Distribution Width 16.3 % (9.3-17.3); White Blood Count 7.1 T/CUMM (4-12)
[2020-10-19 07:11] LABS: Albumin 2.7 G/DL (3.4-5.0); Bilirubin,Total 1.1 MG/DL (0.2-1.0); Osmolality,Calculated 272.8 MOS/KG (273-304); Potassium 3.1 MMOL/L (3.5-5.1); Total Protein 5.3 G/DL (6.4-8.2)
[2020-10-19] MEDS ORDERED: POTASSIUM CHLORIDE 20 MEQ/15 ML UDCUP PO ONE (07:35)
[2020-10-19 08:02] VITALS: BP 112/75
[2020-10-19] MEDS: METOPROLOL SUCCINATE XL 25 MG TABLET PO SCH (08:04)
[2020-10-19] MEDS: ALFUZOSIN 10 MG TABLET PO SCH (08:04)
[2020-10-19] MEDS: ASPIRIN EC 81 MG TABLET PO SCH (08:04)
[2020-10-19] MEDS: PANTOPRAZOLE 40 MG TABLET PO SCH (08:04)
[2020-10-19] MEDS: AMIODARONE 200 MG TABLET PO SCH (08:04)
[2020-10-19] MEDS ORDERED: buPROPion SR 100 MG TABLET PO SCH (09:00)
== END 2020-10-19 09:03 | disposition home or self-care (01) | DRG 881 ==
LOC: EDUNIT# → EDBD → N.ED 12:42 → SUATTDRO 14:41 → N.EDINP 14:41 → N.CC 15:24 → N.4E 10-17 17:50
PROVIDERS: ADMIT Internal Medicine; ATTEND Internal Medicine